=== PATIENT | male | born 1960 | race American Indian/Alaskan Native ===

== ENCOUNTER 2020-07-28 23:28 | Inpatient (IN) | payer OTHER ==
[2020-07-28] MEDS ORDERED: SODIUM CHLORIDE 0.9% 1000 ML 1,000 ML IV ONE (23:43)
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
[2020-07-29 00:50] LABS: Basophils % (Auto) 0.3 % (0.0-1.8); Eosinophils % (Auto) 0.1 % (0.0-4.3); Hematocrit 50.3 % (35.5-45.6); Hemoglobin 16.2 gm/dl (11.8-15.2); Lymphocytes # (Auto) 2.6 K/mm3 (1.2-5.4); Mean Corpuscular HGB Conc 32 % (32-34); Mean Corpuscular Volume 92 fl (84-94); Monocytes # (Auto) 0.9 K/mm3 (0.0-0.8); Monocytes % (Auto) 7.2 % (0.0-7.3); Platelet Count 170 K/mm3 (140-440); Red Blood Count 5.49 M/mm3 (3.65-5.03); Red Cell Distribution Width 15.1 % (13.2-15.2)
[2020-07-29 00:55] LABS: Alanine Aminotransferase 12 units/L (7-56); Albumin 4.5 g/dL (3.9-5); BUN/Creatinine Ratio 22; Blood Urea Nitrogen 22 mg/dL (9-20); Hemolysis Index 7
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
--- NOTE | 2020-07-29 01:38 | XRay Report ---
CHEST 1 VIEW 07/29/2020 12:30 AM INDICATION / CLINICAL INFORMATION: Altered mental status. COMPARISON: None available. FINDINGS: SUPPORT DEVICES: None. HEART / MEDIASTINUM: No significant abnormality. LUNGS / PLEURA: No significant pulmonary or pleural abnormality. No pneumothorax. ADDITIONAL FINDINGS: No significant additional findings. IMPRESSION: 1. No acute findings. Signer Name: Nghia Burroughs MD Signed: 07/29/2020 1:33 AM Workstation Name: [id number]
[2020-07-29 04:23] LABS: Bilirubin,Urine NEG (Negative); Blood,Urine SM (Negative); Color,Urine Yellow (Yellow); Mucus,Urine 3+ /HPF; Urobilinogen,Urine < 2.0 mg/dL (<2.0)
[2020-07-29 04:26] LABS: Amphetamine Screen,Urine PRESUMPTIVE NEGATIVE; Benzodiazepines Screen,Urine PRESUMPTIVE POSITIVE; Cannabinoid Screen,Urine PRESUMPTIVE POSITIVE; Cocaine Screen,Urine PRESUMPTIVE NEGATIVE; Methadone Screen,Urine PRESUMPTIVE NEGATIVE; Opiate Screen,Urine PRESUMPTIVE NEGATIVE
--- NOTE | 2020-07-29 10:12 | Consultation ---
History of Present Illness - Reason for Consult Consult date: 07/29/20 Reason for consult: MHE Requesting physician: MP SANTOS - History of Present Psychiatric Illness Per ED Provider: This is a 59-year-old male presents to the emergency department via EMS from home with the complaint of combativeness, agitation, and altered mental status. EMS says that "per the patient's girlfriend, the patient does not have any history of any mental illness or psychiatric conditions. Apparently the patient has been altered over the past 2 days. This evening the patient became agitated and aggressive and was seen by EMS ripping his clothes off and yelling at them. The patient was given 5 mg of Haldol, 5 mg of Versed, and 50 mg of Benadryl. He arrives to the emergency department medicated and sedated and therefore is currently a poor historian. He does not appear to have been in this emergency department previously. PSYCH HPI Patient is a 59 year old Male with prior psychiatric history of Bipolar many years ago and resolved and has past medicla history of HTN and DM who presents to hospital with altered mental status. Patient is only oriented to , appears to very altered, when asked where he is, patient says his name, says he is from "[facility]" and laughs intermitently. says patient symptoms and behavior is sudden, not prior incidence and patient does smoke marijuanna. PAST PSYCHIATRIC HISTORY Diagnoses: Bipolar Suicide attempts or Self-harm behavior: none reported Prior psychiatric hospitalizations: n/a Substance Abuse history: Marijuana Previous psychiatric medications tried: none reported Outpatient treatment: none reported PAST MEDICAL HISTORY: HTN and DM Family Psychiatric History: None reported or documented SOCIAL HISTORY Marital Status: Living Arrangements: with Employment Status: retired Access to guns/weapons: none Education: History of Abuse: none reported Legal History: none REVIEW OF SYSTEMS ROS cannot be reliably obtained from the patient due to his confusion MENTAL STATUS EXAMINATION General Appearance and Behavior: Age appropriate, good hygiene, wearing appropriate clothes, uncooperative polite with questioning. Cooperation: Withdrawn Psychomotor Behavior: Psychomotor agitation Mood: Affect and affective range: Flat Thought Process: Tangential, loose associattion Thought Content: Paranoid and confused Speech: Normal volume, Regular rate and rhythm, Intellectual Functioning: Poor Suicidal Ideation: N/A Homicidal Ideation: N/A Impulse Control: Unimpaired Insight and Judgment: Impaired Memory: memory impaired Attention:Distractible, Orientation: Alert, but disoriented and confused DX: ALTERED MENTAL STATUS Treatment Plan Patient symptoms are sudden, prior history of bipolar in early years and resolved. Presents as altered rather than manic. Recommend Neurology clearance prior to futher psychiatric recommendation at this time. MEDICATIONS: Risks, benefits and alternatives of medications discussed with the patient, questions answered and consent obtained from patient. PSYCHOTHERAPY: Supportive psychotherapy provided MEDICAL: Per primary team DELIRIUM PRECAUTIONS: Please re-orient patient frequently, keep lights on during the day, and minimize benzodiazepines and opiates as these medications could worsen patient's confusion. COMPENSATION EXPERT: DISPOSITION: Do Not Recommend acute inpatient psychiatric hospitalization at this time until nenurology clearance.. Case discussed with Dr. Olivier who agrees with current disposition LEGAL STATUS: FOLLOW-UP: Will follow Thank you for the consult. Please contact with any questions and/or concerns. Medications and Allergies Allergies Allergy/AdvReac Type Severity Reaction Status Date / Time No Known Allergies Allergy Verified 07/29/20 09:32 Mental Status Exam - Vital signs Last Vital Signs Temp 97.1 F L 07/28/20 23:42 Pulse 91 H 07/29/20 08:00 Resp 17 07/29/20 08:00 BP 140/77 07/29/20 09:01 Pulse Ox 97 07/29/20 00:00 Results Result Diagrams: 07/28/20 23:59 07/28/20 23:59 Abnormal lab results 07/28/20 07/28/20 07/28/20 Range/Units 23:59 23:59 23:59 WBC 13.2 H (4.5-11.0) K/mm3 RBC 5.49 H (3.65-5.03) M/mm3 Hgb 16.2 H (11.8-15.2) gm/dl Hct 50.3 H (35.5-45.6) % [place] # (Auto) 0.9 H (0.0-0.8) K/mm3 Seg Neutrophils % 72.4 H (40.0-70.0) % Seg Neutrophils # 9.6 H (1.8-7.7) K/mm3 Carbon Dioxide 18 L (22-30) mmol/L BUN 22 H (9-20) mg/dL Glucose 151 H (75-100) mg/dL Total Creatine Kinase (55-170) units/L Salicylates < 0.3 L (2.8-20.0) mg/dL Acetaminophen (10.0-30.0) ug/mL 07/28/20 07/28/20 Range/Units 23:59 23:59 WBC (4.5-11.0) K/mm3 RBC (3.65-5.03) M/mm3 Hgb (11.8-15.2) gm/dl Hct (35.5-45.6) % [place] # (Auto) (0.0-0.8) K/mm3 Seg Neutrophils % (40.0-70.0) % Seg Neutrophils # (1.8-7.7) K/mm3 Carbon Dioxide (22-30) mmol/L BUN (9-20) mg/dL Glucose (75-100) mg/dL Total Creatine Kinase 276 H (55-170) units/L Salicylates (2.8-20.0) mg/dL Acetaminophen 5.0 L (10.0-30.0) ug/mL All other labs normal.
--- NOTE | 2020-07-29 21:34 | Consultation ---
History of Present Illness - Reason for Consult Consult date: 07/29/20 - History of Present Illness [facility] Consult Note # Demographics Consult Type: General Neurology Patient Location: Emergency Room First Name: rsosy Last Name: safia Date of : 1960 Age: 59 Gender: Male Time of Initial Page ( Time): 07/29/2020, 21:23 Time of Return Call ( Time): 07/29/2020, 21:23 # HPI History: 59yo man who presents with confusion for the last 2 days. He has had c ombativeness and was agitated. # Scores Time of exam and NIHSS ( Time): 07/29/2020, 21:27 Level of Consciousness 1a: [0] = Alert; keenly responsive LOC Questions 1b: [1] = Answers one correctly LOC Commands 1c: [1] = Performs one correctly Best Gaze 2: [0] = Normal Visual 3: [0] = No visual loss Facial Palsy 4: [0] = Normal symmetrical movements Motor Arm Left 5a: [0] = No drift Motor Arm Right 5b: [1] = Drift Motor Leg Left 6a: [0] = No drift Motor Leg Right 6b: [2] = Some effort against gravity Limb Ataxia 7: [0] = Absent Sensory 8: [0] = Normal Best Language 9: [2] = Severe aphasia Dysarthria 10: [1] = [id number] dysarthria Extinction and Inattention 11: [0] = No abnormality NIHSS Total: 8 # PMH-FH-SH Past Medical History: bipolar Social History: THC # Assessment Impression: Altered Mental Status, possible stroke # Plan Thrombolytic/Intervention: NOT IV Thrombolytic or IA Intervention Thrombolytic Exclusion (< 3 hour window): time of onset unclear Intraarterial Exclusion: other (see below), symptoms greater than 2 days Labs: Ammonia, B12, liver function tests, TSH, urine drug screen, ua Imaging: (urgency: routine admission): MRI Brain without contrast Other: would not pursue stroke work-up if MRI is negative, I have discussed my recommendations with the referring provider Medications and Allergies Allergies Allergy/AdvReac Type Severity Reaction Status Date / Time No Known Allergies Allergy Verified 07/29/20 09:32 Exam - Constitutional Vitals: Temp Pulse Resp BP Pulse Ox 97.1 F L 87 17 167/71 99 07/28/20 23:42 07/29/20 12:00 07/29/20 08:00 07/29/20 12:00 07/29/20 12:00 Results - Labs CBC & Chem 7: 07/28/20 23:59 07/28/20 23:59 Labs: Abnormal lab results 07/28/20 07/28/20 07/28/20 Range/Units 23:59 23:59 23:59 WBC 13.2 H (4.5-11.0) K/mm3 RBC 5.49 H (3.65-5.03) M/mm3 Hgb 16.2 H (11.8-15.2) gm/dl Hct 50.3 H (35.5-45.6) % Lynn # (Auto) 0.9 H (0.0-0.8) K/mm3 Seg Neutrophils % 72.4 H (40.0-70.0) % Seg Neutrophils # 9.6 H (1.8-7.7) K/mm3 Carbon Dioxide 18 L (22-30) mmol/L BUN 22 H (9-20) mg/dL Glucose 151 H (75-100) mg/dL Total Creatine Kinase (55-170) units/L Salicylates < 0.3 L (2.8-20.0) mg/dL Acetaminophen (10.0-30.0) ug/mL 07/28/20 07/28/20 Range/Units 23:59 23:59 WBC (4.5-11.0) K/mm3 RBC (3.65-5.03) M/mm3 Hgb (11.8-15.2) gm/dl Hct (35.5-45.6) % Lynn # (Auto) (0.0-0.8) K/mm3 Seg Neutrophils % (40.0-70.0) % Seg Neutrophils # (1.8-7.7) K/mm3 Carbon Dioxide (22-30) mmol/L BUN (9-20) mg/dL Glucose (75-100) mg/dL Total Creatine Kinase 276 H (55-170) units/L Salicylates (2.8-20.0) mg/dL Acetaminophen 5.0 L (10.0-30.0) ug/mL
--- NOTE | 2020-07-29 23:39 | History and Physical Report ---
History of Present Illness Date of examination: 07/29/20 Date of admission: 07/29/20 22:08 Chief complaint: Altered mental status History of present illness: 59 year old Male with prior psychiatric history of Bipolar many years ago and resolved and has past medicla history of HTN and DM who presents to hospital with altered mental status. Patient is only oriented to , appears to very altered, when asked where he is, patient says his name, says he is from "[place]" and laughs intermitently. says patient symptoms and behavior is sudden, not prior incidence and patient does smoke marijuanna. Past History Past Medical History: diabetes, hypertension Medications and Allergies Allergies Allergy/AdvReac Type Severity Reaction Status Date / Time No Known Allergies Allergy Verified 07/29/20 09:32 Active Meds: Active Medications Aspirin (Aspirin 325 Mg Tab) 325 mg PO QDAY SHILPA Atorvastatin Calcium (Atorvastatin 40 Mg Tab) 40 mg PO QHS SHILPA Heparin Sodium (Porcine) (Heparin 5,000 Unit/1 Ml Vial) 5,000 unit SUB-Q Q8HR S CH Hydralazine HCl (Hydralazine 20 Mg/1 Ml Inj) 10 mg IV ONCE ONE Stop: 07/29/20 23:31 Labetalol HCl (Labetalol 20 Mg/4 Ml Inj) 10 mg IV Q5MIN PRN PRN Reason: to maintain SBP < 180 Pantoprazole Sodium (Pantoprazole 40 Mg Tab) 40 mg PO QDAC SHILPA Sodium Chloride (Sodium Chloride 0.9% 10 Ml Flush Syringe) 10 ml INJ PRN PRN PRN Reason: LINE FLUSH Review of Systems Neurological: change in mentation Exam - Constitutional Vitals: Temp Pulse Resp BP Pulse Ox 97.1 F L 87 17 167/71 99 07/28/20 23:42 07/29/20 12:00 07/29/20 08:00 07/29/20 12:00 07/29/20 12:00 General appearance: Present: no acute distress, well-nourished - EENT Eyes: Present: PERRL ENT: hearing intact, clear oral mucosa - Neck Neck: Present: supple, normal ROM - Respiratory Respiratory effort: normal Respiratory: bilateral: CTA - Cardiovascular Heart Sounds: Present: S1 & S2. Absent: rub, click - Extremities Extremities: pulses symmetrical, No edema Peripheral Pulses: within normal limits - Abdominal General gastrointestinal: Present: soft, non-tender, non-distended, normal bowel sounds Male genitourinary: Present: normal - Integumentary Integumentary: Present: clear, warm, dry - Musculoskeletal Musculoskeletal: gait normal, strength equal bilaterally - Psychiatric Psychiatric: appropriate mood/affect, intact judgment & insight - Neurologic Neurologic: CNII-XII intact, moves all extremities HEART Score - HEART Score Troponin: Troponin T < 0.010 ng/mL (0.00-0.029) 07/28/20 23:59 Results - Labs CBC & Chem 7: 07/28/20 23:59 07/28/20 23:59 Labs: Laboratory Last Values WBC 13.2 K/mm3 (4.5-11.0) H 07/28/20 23:59 RBC 5.49 M/mm3 (3.65-5.03) H 07/28/20 23:59 Hgb 16.2 gm/dl (11.8-15.2) H 07/28/20 23:59 Hct 50.3 % (35.5-45.6) H 07/28/20 23:59 MCV 92 fl (84-94) 07/28/20 23:59 MCH 30 pg (28-32) 07/28/20 23:59 MCHC 32 % (32-34) 07/28/20 23:59 RDW 15.1 % (13.2-15.2) 07/28/20 23:59 Plt Count 170 K/mm3 (140-440) 07/28/20 23:59 Lymph % (Auto) 20.0 % (13.4-35.0) 07/28/20 23:59 [place] % (Auto) 7.2 % (0.0-7.3) 07/28/20 23:59 Eos % (Auto) 0.1 % (0.0-4.3) 07/28/20 23:59 Baso % (Auto) 0.3 % (0.0-1.8) 07/28/20 23:59 Lymph # (Auto) 2.6 K/mm3 (1.2-5.4) 07/28/20 23:59 [place] # (Auto) 0.9 K/mm3 (0.0-0.8) H 07/28/20 23:59 Eos # (Auto) 0.0 K/mm3 (0.0-0.4) 07/28/20 23:59 Baso # (Auto) 0.0 K/mm3 (0.0-0.1) 07/28/20 23:59 Seg Neutrophils % 72.4 % (40.0-70.0) H 07/28/20 23:59 Seg Neutrophils # 9.6 K/mm3 (1.8-7.7) H 07/28/20 23:59 Sodium 140 mmol/L (137-145) 07/28/20 23:59 Potassium 4.1 mmol/L (3.6-5.0) 07/28/20 23:59 Chloride 103.5 mmol/L (98-107) 07/28/20 23:59 Carbon Dioxide 18 mmol/L (22-30) L 07/28/20 23:59 Anion Gap 23 mmol/L 07/28/20 23:59 BUN 22 mg/dL (9-20) H 07/28/20 23:59 Creatinine 1.0 mg/dL (0.8-1.3) 07/28/20 23:59 Estimated GFR > 60 ml/min 07/28/20 23:59 BUN/Creatinine Ratio 22 % 07/28/20 23:59 Glucose 151 mg/dL (75-100) H 07/28/20 23:59 Calcium 10.0 mg/dL (8.4-10.2) 07/28/20 23:59 Total Bilirubin 0.80 mg/dL (0.1-1.2) 07/28/20 23:59 AST 15 units/L (5-40) 07/28/20 23:59 ALT 12 units/L (7-56) 07/28/20 23:59 Alkaline Phosphatase 75 units/L (35-129) 07/28/20 23:59 Ammonia 53.0 umol/L (25-60) 07/28/20 23:59 Total Creatine Kinase 276 units/L (55-170) H 07/28/20 23:59 Troponin T < 0.010 ng/mL (0.00-0.029) 07/28/20 23:59 Total Protein 8.1 g/dL (6.3-8.2) 07/28/20 23:59 Albumin 4.5 g/dL (3.9-5) 07/28/20 23:59 Albumin/Globulin Ratio 1.3 % 07/28/20 23:59 TSH 1.110 mlU/mL (0.270-4.200) 07/28/20 23:59 Urine Color Yellow (Yellow) 07/29/20 02:56 Urine Turbidity Slightly-cloudy (Clear) 07/29/20 02:56 Urine pH 5.0 (5.0-7.0) 07/29/20 02:56 Ur Specific [place] 1.026 (1.003-1.030) 07/29/20 02:56 Urine Protein 100 mg/dl mg/dL (Negative) 07/29/20 02:56 Urine Glucose (UA) 50 mg/dL (Negative) 07/29/20 02:56 Urine Ketones 20 mg/dL (Negative) 07/29/20 02:56 Urine Blood Sm (Negative) 07/29/20 02:56 Urine Nitrite Neg (Negative) 07/29/20 02:56 Urine Bilirubin Neg (Negative) 07/29/20 02:56 Urine Urobilinogen < 2.0 mg/dL (<2.0) 07/29/20 02:56 Ur Leukocyte Esterase Neg (Negative) 07/29/20 02:56 Urine WBC (Auto) 1.0 /HPF (0.0-6.0) 07/29/20 02:56 Urine RBC (Auto) 2.0 /HPF (0.0-6.0) 07/29/20 02:56 U Epithel Cells (Auto) 1.0 /HPF (0-13.0) 07/29/20 02:56 Urine Mucus 3+ /HPF 07/29/20 02:56 Salicylates < 0.3 mg/dL (2.8-20.0) L 07/28/20 23:59 Urine Opiates Screen Presumptive negative 07/29/20 02:56 Urine Methadone Screen Presumptive negative 07/29/20 02:56 Acetaminophen 5.0 ug/mL (10.0-30.0) L 07/28/20 23:59 Ur Barbiturates Screen Presumptive negative 07/29/20 02:56 Ur Phencyclidine Scrn Presumptive negative 07/29/20 02:56 Ur Amphetamines Screen Presumptive negative 07/29/20 02:56 U Benzodiazepines Scrn Presumptive positive 07/29/20 02:56 Urine Cocaine Screen Presumptive negative 07/29/20 02:56 U Marijuana (THC) Screen Presumptive positive 07/29/20 02:56 Drugs of Abuse Note Disclamer 07/29/20 02:56 Plasma/Serum Alcohol < 0.01 % (0-0.07) 07/28/20 23:59 Coronavirus (PCR) Negative (Negative) 07/29/20 08:24 - Imaging and Cardiology CT Scan - head: image reviewed Assessment and Plan VTE prophylaxis?: Chemical Plan of care discussed with patient/family: Yes - Patient Problems (1) Acute metabolic encephalopathy Current Visit: Yes Status: Acute Plan to address problem: Admit the patient to the medical telemetry. Patient is seen and evaluated by telemetry neurology. We will put the patient on aspirin 325 mg p.o. daily Lipitor 40 mg p.o. daily. We will do the MRI of the brain and MRA of the brain and neck with and without contrast. Echocardiogram. If needed will consult neurology on-call. (2) Diabetes 1.5, managed as type 2 Current Visit: Yes Status: Acute Plan to address problem: We will put the patient insulin sliding scale. We also consult diabetic educ ation (3) DVT prophylaxis Current Visit: Yes Status: Acute Plan to address problem: Heparin 5000 units subcu every 8 hours for DVT prophylaxis and Protonix 40 mg p.o. daily for GI prophylaxis. Patient is a full code (4) History of bipolar disorder Current Visit: Yes Status: Acute Plan to address problem: Patient is followed by psychiatry will put the medication as per psych. (5) Hypertension Current Visit: Yes Status: Acute Plan to address problem: Hydralazine 10 mg IV every every 6 hours as needed. We monitor the blood pressure closely.
[2020-07-29] MEDS ORDERED: DEXTROSE 50% IN WATER (25GM) 50 ML SYRINGE IV PRN (23:41)
[2020-07-30] MEDS ORDERED: hydrALAZINE 20 MG/1 ML INJ IV ONE (00:30)
[2020-07-30 04:43] LABS: Alanine Aminotransferase 15 units/L (7-56); Albumin 4.4 g/dL (3.9-5)
[2020-07-30 04:44] LABS: Bilirubin,Direct < 0.2 mg/dL (0-0.2)
[2020-07-30 04:56] LABS: Chol/HDL Ratio 3.93 %; HDL Cholesterol 30 mg/dL (40-59); LDL Cholesterol,Direct 67 mg/dL (50-130)
[2020-07-30] MEDS ORDERED: HEPARIN 5,000 UNIT/1 ML VIAL SUB-Q SCH (06:00)
[2020-07-30] MEDS ORDERED: PANTOPRAZOLE 40 MG TAB PO SCH (07:30)
[2020-07-30] MEDS: HEPARIN 5,000 UNIT/1 ML VIAL SUB-Q SCH ×3 (11:16→22:53)
[2020-07-30] MEDS: INSULIN LISPRO 100 UNIT/ML SUB-Q SCH ×4 (11:17→22:53)
[2020-07-30] MEDS: ASPIRIN 325 MG TAB PO SCH (11:17)
[2020-07-30] MEDS: PANTOPRAZOLE 40 MG TAB PO SCH (11:17)
--- NOTE | 2020-07-30 11:32 | Progress Note ---
Subjective - Reason for Consult Consult date: 07/30/20 Reason for consult: MHE Requesting physician: LUCILA GIL - Chief Complaint Chief complaint: Progress Patient seen in room awake but non communicative, making non audible sounds when asked questions, laughs and looks away. MENTAL STATUS EXAMINATION General Appearance and Behavior: Age appropriate, good hygiene, wearing appropriate clothes, uncooperative polite with questioning. Cooperation: Withdrawn Psychomotor Behavior: Psychomotor agitation Mood: Affect and affective range: Flat Thought Process: loose associattion Thought Content:confused Speech: Normal volume, Regular rate and rhythm, Intellectual Functioning: Poor Suicidal Ideation: N/A Homicidal Ideation: N/A Impulse Control: Unimpaired Insight and Judgment: Impaired Memory: memory impaired Attention:Distractible, Orientation: Alert, but disoriented and confused DX: ALTERED MENTAL STATUS Treatment Plan Patient awaiting neurology clearance MEDICATIONS: Risks, benefits and alternatives of medications discussed with the patient, questions answered and consent obtained from patient. PSYCHOTHERAPY: Supportive psychotherapy provided MEDICAL: Per primary team DELIRIUM PRECAUTIONS: Please re-orient patient frequently, keep lights on during the day, and minimize benzodiazepines and opiates as these medications could worsen patient's confusion. FAMILY PRESERVATION OFFICER: DISPOSITION: Do Not Recommend acute inpatient psychiatric hospitalization at this time until nenurology clearance.. Case discussed with Dr. Olivier who agrees with current disposition LEGAL STATUS: FOLLOW-UP: Will follow Thank you for the consult. Please contact with any questions and/or concerns. Mental Status Exam - Vital signs Last Vital Signs Temp 97.9 F 07/30/20 10:27 Pulse 61 07/30/20 10:26 Resp 18 07/30/20 10:27 BP 166/89 07/30/20 10:26 Pulse Ox 100 07/30/20 10:26
--- NOTE | 2020-07-30 12:16 | Discharge Summary ---
Providers - Providers Date of Admission: 07/29/20 22:08 Date of discharge: 07/30/20 Attending physician: HARLEY VALE 07/29/20 20:26 Consult to Physician [CONS] Routine Comment: Consulting Provider: YAEL QUIROGA Physician Instructions: Reason For Exam: mental health placement 07/29/20 23:31 Occupational Therapy Evaluate and Treat [CONS] Routine Comment: Reason For Exam: Neuro deficits Physical Therapy Evaluation and Treat [CONS] Routine Comment: Reason For Exam: Neuro deficits 07/29/20 23:41 Consult to Dietitian/Nutrition [CONS] Routine Physician Instructions: Reason For Exam: Reason for Consult: Diet education 07/30/20 10:01 Consult to Physician [CONS] Routine Comment: Consulting Provider: ALEXANDRA LEE Physician Instructions: Reason For Exam: Altered mental status Primary care physician: [employer] WORK[employer] Hospitalization Condition: Fair Disposition: DC/[place]-70 ANOTHER TYPE [facility] Final Discharge Diagnosis (Prints w/discharge instructions): Acute metabolic/toxic encephalopathy, Diabetes type 2, History of bipolar disorder, Hypertension uncontrolled, Substance abuse. Time spent for discharge: 34 minutes Core Measure Documentation - Palliative Care Palliative Care/ Comfort Measures: Not Applicable - Core Measures Any of the following diagnoses?: none Exam - Constitutional Vitals: Temp Pulse Resp BP Pulse Ox 97.9 F 61 18 166/89 100 07/30/20 10:27 07/30/20 10:26 07/30/20 10:27 07/30/20 10:26 07/30/20 10:26 Plan Activity: fall precautions Weight Bearing Status: Non-Weight Bearing Follow up with: PRIMARY CAREMD [Primary Care Provider] - 3-5 Days
[2020-07-30] MEDS: hydrALAZINE 20 MG/1 ML INJ IV PRN ×2 (14:10→23:01)
--- NOTE | 2020-07-30 16:06 | Vascular Lab Report ---
DUPLEX DOPPLER ULTRASOUND CAROTID, BILATERAL INDICATION / CLINICAL INFORMATION: stroke. Carotid artery atherosclerotic disease. COMPARISON: None available. FINDINGS: RIGHT CAROTID: Mild intimal thickening seen in right CCA. Mild atherosclerosis seen in right bulb ext ending into proximal ICA. - PLAQUE ESTIMATE (%): < 50% - CCA velocity: 105 cm/sec. - ICA peak systolic velocity: 91 cm/sec. - ICA/CCA PSV Ratio: 0.9 Right Vertebral Artery: Antegrade flow. LEFT CAROTID: Mild intimal thickening is seen in the proximal and mid left CCA. Moderate atherosclero sis is seen in the distal CCA and bulb. - PLAQUE ESTIMATE (%): Near-complete occlusion of the left ICA. - CCA velocity: 58 cm/sec. - ICA peak systolic velocity: 7 cm/sec. - ICA/CCA PSV Ratio: 0.1 Left Vertebral Artery: Antegrade flow. IMPRESSION: 1. Right Internal Carotid Artery: Less than 50% diameter stenosis. 2. Left Internal Carotid Artery: Near-complete occlusion of the left ICA secondary to atherosclerotic disease. 3. Moderate to severe atherosclerosis seen bilateral, as above. Findings were communicated to the nurse by the technologist at 11:22 AM. Velocity criteria are extrapolated from diameter data as defined by the Society of Radiologists in Ul trasound Consensus Conference, Radiology 2003; 229;340-346. NO STENOSIS (NORMAL) - Plaque = none; ICA PSV < 125 cm/sec; ICA/CCA PSV Ratio < 2.0 <50% STENOSIS - Plaque < 50%; ICA PSV < 125 cm/sec; ICA/CCA PSV Ratio < 2.0 50-69% STENOSIS - Plaque > 50%; ICA PSV = 125-230 cm/sec; ICA/CCA PSV Ratio = 2.0-4.0 >70% BUT <100% STENOSIS - Plaque > 50%; ICA PSV > 230 cm/sec; ICA/CCA PSV Ratio > 4.0 NEAR OCCLUSION - Plaque = visible lumen; ICA PSV = high/low/none; ICA/CCA PSV Ratio = variable TOTAL OCCLUSION - Plaque = no lumen; ICA PSV = none; ICA/CCA PSV Ratio = N/A Scribed by: Katherine Corcoran RDMS, RVT Scribed: 07/30/2020 11:27 AM Signer Name: Emeka Merchant MD Signed: 07/30/2020 4:02 PM Workstation Name: [id number]
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
[2020-07-31] MEDS: HEPARIN 5,000 UNIT/1 ML VIAL SUB-Q SCH ×3 (05:59→22:18)
[2020-07-31 08:48] LABS: Basophils % (Auto) 0.3 % (0.0-1.8); Hematocrit 42.6 % (35.5-45.6); Hemoglobin 14.4 gm/dl (11.8-15.2); Lymphocytes # (Auto) 2.6 K/mm3 (1.2-5.4); Lymphocytes % (Auto) 21.1 % (13.4-35.0); Mean Corpuscular HGB Conc 34 % (32-34); Mean Corpuscular Volume 90 fl (84-94); Monocytes # (Auto) 1.1 K/mm3 (0.0-0.8); Monocytes % (Auto) 9.2 % (0.0-7.3); Platelet Count 146 K/mm3 (140-440); Red Blood Count 4.76 M/mm3 (3.65-5.03); Red Cell Distribution Width 14.6 % (13.2-15.2)
[2020-07-31 09:13] LABS: Blood Urea Nitrogen 20 mg/dL (9-20); Calcium 10.2 mg/dL (8.4-10.2); Hemolysis Index 40
--- NOTE | 2020-07-31 09:28 | Cat Scan Report ---
CT BRAIN: 07/31/2020 INDICATION / CLINICAL INFORMATION: cva. COMPARISON: 07/29/2020 FINDINGS: BRAIN/INTRACRANIAL STRUCTURES: Unenhanced CT images of the brain demonstrate evidence of evolving ext ensive ischemic changes. There is been interval development of hypoattenuation in the left subcortica l white matter, in the region of the internal capsule and centrum semiovale. There may be some additi onal subtle cortical hypoattenuation in portions of the left MCA distribution. There is no evidence of hemorrhage. There are no abnormal extra-axial fluid collections. EXTRACRANIAL STRUCTURES: Unremarkable. IMPRESSION: Evolving left sided subcortical and cortical ischemic changes. No evidence of hemorrhage. All CT scans at this location are performed using dose reduction to ALARA by means of automated expos ure control. Signer Name: Gurwinder Hilton MD Signed: 07/31/2020 9:23 AM Workstation Name: [id number]
--- NOTE | 2020-07-31 09:31 | Cat Scan Report ---
CTA NECK WITH CONTRAST HISTORY: Stroke COMPARISON: None. TECHNIQUE: Routine CTA of the neck was performed. 3-D/MIP reformats were postprocessed. Percentage s tenosis is determined by direct quantitative measurements of diseased internal carotid artery diamete r compared with normal distal internal carotid artery reference segments or by criteria similar to NA SCET where applicable.All CT scans at this location are performed using CT dose reduction for ALARA b y means of automated exposure control CONTRAST: 100 ml of Omnipaque 350 FINDINGS: Aortic arch: No significant abnormality. Streaky artifacts along the right innominate artery Cervical vertebral arteries: No significant abnormality. Left vertebral artery is originating from th e aorta Common carotid arteries: No significant abnormality. Carotid bifurcations: Distal right common carotid artery patulous; nonstenotic atherosclerotic plaque with focal calcificat ion along the anterior wall of right internal carotid artery Left internal carotid artery is occluded at the origin; no string sign Cervical internal carotid arteries: Cervical segment of right internal carotid artery is normal; left internal carotid artery occluded Additional findings: None. IMPRESSION: Patulous distal right common carotid artery; nonstenotic atheromatous plaque with focal areas of calc ification in the proximal right internal carotid artery Left internal carotid artery is occluded Signer Name: Kameron Oswald MD Signed: 07/31/2020 9:26 AM Workstation Name: [id number]
--- NOTE | 2020-07-31 09:40 | Cat Scan Report ---
CTA HEAD WITH CONTRAST HISTORY: Stroke COMPARISON: None. TECHNIQUE: Routine non-contrast CT Head, CTA of the head and post-contrast CT Head are performed. 3-D /MIP reformats postprocessed. All CT scans at this location are performed using CT dose reduction for ALARA by means of automated exposure control CONTRAST: 100 ml of Omnipaque 350 FINDINGS: CTA Head: Intracranial vertebral arteries: No significant abnormality. Basilar artery: No significant abnormality. Posterior cerebral arteries: No significant abnormality. Intracranial internal carotid arteries: In the right internal carotid artery, approximately 60% steno ses in the cavernous segment; communicating segment in the right internal carotid artery terminus nor mal Collateral circulation to the left internal carotid artery at the skull base; collateral circulation also through left ophthalmic artery; difficult to evaluate the left internal carotid artery because of decreased flow; lumen of the cavernous segment of left internal carotid artery appears narrowed; c ommunicating segment of the left internal carotid artery and terminus normal Anterior cerebral arteries: Right A1 segment is hypoplastic; left the A1 segment supplies both perica llosal arteries; minimal atherosclerotic changes in the left A1 segment Middle cerebral arteries: Both M1 segments are normal Dural venous sinuses:Not optimally opacified. No significant abnormality. Additional findings: None. IMPRESSION: Approximately 60% stenoses in the cavernous segment of right internal carotid artery; left internal c arotid artery is opacified at the skull base from collateral circulation; lumen of the cavernous segm ent of left internal carotid artery appears narrower Right A1 segment is hypoplastic; left A1 segment supplies both anterior cerebral arteries; minimal a theromatous changes in the left A1 segment Signer Name: Kameron Oswald MD Signed: 07/31/2020 9:36 AM Workstation Name: [id number]
[2020-07-31 09:44] LABS: BUN/Creatinine Ratio 29
[2020-07-31] MEDS: INSULIN LISPRO 100 UNIT/ML SUB-Q SCH ×3 (09:57→19:39)
[2020-07-31] MEDS: ASPIRIN 325 MG TAB PO SCH (10:05)
[2020-07-31] MEDS: PANTOPRAZOLE 40 MG TAB PO SCH (10:06)
[2020-07-31] MEDS: hydrALAZINE 20 MG/1 ML INJ IV PRN ×2 (10:06→14:50)
--- NOTE | 2020-07-31 10:40 | Consultation ---
History of Present Illness Consult date: 07/31/20 Reason for Consult: AMS Chief complaint: AMS History of present illness: 59 yo male with hth, dm, noted with encephalopathy with right-sided weakness. Patient is not able to communicate at present. Per RN, no communication with her either. Past History Past Medical History: diabetes, hypertension Medications and Allergies Allergies Allergy/AdvReac Type Severity Reaction Status Date / Time No Known Allergies Allergy Verified 07/29/20 09:32 Home Medications Medication Instructions Recorded Confirmed Last Taken Type metFORMIN [Glucophage] 500 mg PO BID 07/30/20 07/30/20 Unknown History Active Meds: Active Medications Aspirin (Aspirin 325 Mg Tab) 325 mg PO QDAY [facility] Last Admin: 07/31/20 10:05 Dose: 325 mg Documented by: Atorvastatin Calcium (Atorvastatin 40 Mg Tab) 40 mg PO QHS [facility] Last Admin: 07/30/20 22:54 Dose: 40 mg Documented by: Dextrose (Dextrose 50% In Water (25gm) 50 Ml Syringe) 0 ml IV Q30MIN PRN; Protocol PRN Reason: Hypoglycemia Heparin Sodium (Porcine) (Heparin 5,000 Unit/1 Ml Vial) 5,000 unit SUB-Q Q8HR [facility] Last Admin: 07/31/20 05:59 Dose: 5,000 unit Documented by: Hydralazine HCl (Hydralazine 20 Mg/1 Ml Inj) 10 mg IV Q4H PRN PRN Reason: Blood Pressure Last Admin: 07/31/20 10:06 Dose: 10 mg Documented by: Insulin Human Lispro (Insulin Lispro 100 Unit/Ml) 0 unit SUB-Q ACHS [facility]; Protocol Last Admin: 07/31/20 09:57 Dose: Not Given Documented by: Labetalol HCl (Labetalol 20 Mg/4 Ml Inj) 10 mg IV Q5MIN PRN PRN Reason: to maintain SBP < 180 Pantoprazole Sodium (Pantoprazole 40 Mg Tab) 40 mg PO QDAC [facility] Last Admin: 07/31/20 10:06 Dose: 40 mg Documented by: Sodium Chloride (Sodium Chloride 0.9% 10 Ml Flush Syringe) 10 ml IV PRN PRN PRN Reason: LINE FLUSH Last Admin: 07/31/20 10:08 Dose: 10 ml Documented by: Review of Systems ROS unobtainable: due to mental status Physical Examination - Vital Signs Vital Signs: Vital Signs Pulse Resp 110 H 28 H 07/28/20 23:34 07/28/20 23:34 - Physical Exam Narrative exam: Gen: nad, well-nourished; Head: normocephalic; Eyes: no gaze deviation; no ptosis; ENT: no vocalization; CVS: warm and well-perfused; Pulm: no respiratory distress; GI: appears non-distended; Ext: no cyanosis at distal extremities; Skin: no acute rash at distal extremities; Heme: no pathologic bruising or ecchymosis at distal extremities; Neuro: alert, mute, severe aphasia, CN 2 - PERRL, visual [place] - blinks to stimuli on left>right, CN 3, 4, 6 - no gaze deviation, CN 5 / CN 7 - opens closes eye spontaneously, CN 8 - hearing grossly intact, CN 9, 10 - no swallow noted, CN 11 / 12 - pt is not cooperative secondary to aphasia; Motor - at least 4/5 at leftl exts with drift to bed at left arm/leg (secondary to aphasia); 0/5 at right arm, 1/5 at right leg; Sensory -moves all exts to tactile stimuli, Cerebellar - fnf /hts, pt cannot cooperate secondary to aphasia, Gait - deferred secondary to fall risk; NIHSS (1a.) Level of Consciousness:0 (1b.) LOC Questions:2 (1c.) LOC Commands:2 (2.) Best Gaze:0 (3.) Visual:1 (4.) Facial Palsy:1 (5a.) Motor Arm, Left: 2 (5b.) Motor Arm, Right: 4 (6a.) Motor Leg, Left: 2 (6b.) Motor Leg, Right: 1 (7.) Limb Ataxia:0 (8.) Sensory:1 (9.) Best Language:3 (10.) Dysarthria:2 (11.) Extinction and Inattention:1 NIHSS Total Score: 22 Results - Laboratory Findings CBC and BMP: 07/31/20 08:32 07/31/20 08:32 Abnormal Lab Findings: Abnormal Labs 07/28/20 07/28/20 07/28/20 23:59 23:59 23:59 WBC 13.2 H RBC 5.49 H Hgb 16.2 H Hct 50.3 H Gillespie % (Auto) Gillespie # (Auto) 0.9 H Seg Neutrophils % 72.4 H Seg Neutrophils # 9.6 H Carbon Dioxide 18 L BUN 22 H Creatinine Glucose 151 H POC Glucose Hemoglobin A1c Total Creatine Kinase HDL Cholesterol Salicylates < 0.3 L Acetaminophen 07/28/20 07/28/20 07/30/20 23:59 23:59 03:46 WBC RBC Hgb Hct [place] % (Auto) [place]illespie # (Auto) Seg Neutrophils % Seg Neutrophils # Carbon Dioxide BUN Creatinine Glucose POC Glucose Hemoglobin A1c Total Creatine Kinase 276 H HDL Cholesterol 30 L Salicylates Acetaminophen 5.0 L 07/30/20 07/30/20 07/30/20 03:46 09:05 12:23 WBC RBC Hgb Hct [place] % (Auto) [place] # (Auto) Seg Neutrophils % Seg Neutrophils # Carbon Dioxide BUN Creatinine Glucose POC Glucose 163 H 150 H Hemoglobin A1c 6.2 H Total Creatine Kinase HDL Cholesterol Salicylates Acetaminophen 07/30/20 07/30/20 07/31/20 17:24 23:04 08:32 WBC 12.2 H RBC Hgb Hct [place] % (Auto) 9.2 H G[place]pie # (Auto) 1.1 H Seg Neutrophils % Seg Neutrophils # 8.5 H Carbon Dioxide BUN Creatinine Glucose POC Glucose 131 H 206 H Hemoglobin A1c Total Creatine Kinase HDL Cholesterol Salicylates Acetaminophen 07/31/20 08:32 WBC RBC Hgb Hct [place] % (Auto) Gillespie # (Auto) Seg Neutrophils % Seg Neutrophils # Carbon Dioxide BUN Creatinine 0.7 L Glucose 179 H POC Glucose Hemoglobin A1c Total Creatine Kinase HDL Cholesterol Salicylates Acetaminophen Assessment and Plan 59 yo male with hth, dm, noted with encephalopathy with aphasia and right-sided weakness. 1. Acute Ischemic Stroke (L MCA territory) - ASA 325 mg PO qday, MRI Brain w/o contrast, CTA Head/Neck w/ & w/o contrast, TTEcho and if CTA Head/Neck does not reveal high grade or critical stenoses, recommend a ALISSA and long-term cardiac monitoring to r/o underlying afib, check LDL/HgbA1C/TSH, telemetry, SBP goal 160-200 mmHg and DBP 80-100 mmHg for 48 more hours. Statin therapy for a goal LDL of 70, when patient passes swallow evaluation. PT/OT/ST/Swallow evaluation. Long-term risk-factor modification, including a strict diet/exercise regimen for secondary stroke prophylaxis. 2. Hypertension - goal SBP 160-200 mmHg and DBP 80-100 mmHg for 48 more hours. 3. Diabetes Mellitus - maintain euglycemia. 4. Right Hemiparesis - pt/ot evaluation/monitoring. 5. Mute / Dysarthria / Dysphagia - st / swallow evaluation/monitoring. Pravin Lentz MD Neurology
[2020-07-31] MEDS ORDERED: hydrALAZINE 20 MG/1 ML INJ IV PRN (13:52)
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
[2020-07-31] MEDS: amLODIPine 10 MG TAB PO SCH (14:31)
[2020-07-31] MEDS: METOPROLOL TARTRATE 50 MG TAB PO SCH ×2 (14:32→22:17)
--- NOTE | 2020-07-31 14:37 | Consultation ---
History of Present Illness - Reason for Consult Consult date: 07/31/20 Left Internal Carotid Stenosis Requesting physician: HARLEY VALE - History of Present Illness The patient is a 59-year-old male who was brought to the emergency department by EMS. Per report his girlfriend called because over the previous 2 days he has been combative and agitated. By report he had no previous history of this type of action. At the scene he required Haldol, Versed, and Benadryl to finally calm him down. He was finally brought to [facility] emergency department for evaluation. Review of the record reveals that initially he was sedated and as that wore off there was some confusion however he was able to speak and apparently ambulate around his room in the emergency department. Since his admission that has changed and the patient now has right hemiparesis with aphasia. Unable to gather any additional history secondary to the aphasia. Past History Past Medical History: diabetes, hypertension, stroke Medications and Allergies Allergies Allergy/AdvReac Type Severity Reaction Status Date / Time No Known Allergies Allergy Verified 07/29/20 09:32 Home Medications Medication Instructions Recorded Confirmed Last Taken Type metFORMIN [Glucophage] 500 mg PO BID 07/30/20 07/30/20 Unknown History Active Meds: Active Medications Amlodipine Besylate (Amlodipine 10 Mg Tab) 10 mg PO QDAY [facility] Last Admin: 07/31/20 14:31 Dose: 10 mg Documented by: Aspirin (Aspirin 325 Mg Tab) 325 mg PO QDAY [facility] Last Admin: 07/31/20 10:05 Dose: 325 mg Documented by: Atorvastatin Calcium (Atorvastatin 40 Mg Tab) 40 mg PO QHS [facility] Last Admin: 07/30/20 22:54 Dose: 40 mg Documented by: Dextrose (Dextrose 50% In Water (25gm) 50 Ml Syringe) 0 ml IV Q30MIN PRN; Protocol PRN Reason: Hypoglycemia Heparin Sodium (Porcine) (Heparin 5,000 Unit/1 Ml Vial) 5,000 unit SUB-Q Q8HR [facility] Last Admin: 07/31/20 14:32 Dose: 5,000 unit Documented by: Hydralazine HCl (Hydralazine 20 Mg/1 Ml Inj) 10 mg IV Q4H PRN PRN Reason: Blood Pressure Last Admin: 07/31/20 10:06 Dose: 10 mg Documented by: Hydralazine HCl (Hydralazine 20 Mg/1 Ml Inj) 5 mg IV Q30MIN PRN PRN Reason: Hypertension Insulin Human Lispro (Insulin Lispro 100 Unit/Ml) 0 unit SUB-Q ACHS [facility]; Protocol Last Admin: 07/31/20 12:37 Dose: Not Given Documented by: Labetalol HCl (Labetalol 20 Mg/4 Ml Inj) 10 mg IV Q5MIN PRN PRN Reason: to maintain SBP < 180 Metoprolol Tartrate (Metoprolol Tartrate 50 Mg Tab) 50 mg PO BID [facility] Last Admin: 07/31/20 14:32 Dose: 50 mg Documented by: Pantoprazole Sodium (Pantoprazole 40 Mg Tab) 40 mg PO QDAC [facility] Last Admin: 07/31/20 10:06 Dose: 40 mg Documented by: Sodium Chloride (Sodium Chloride 0.9% 10 Ml Flush Syringe) 10 ml IV PRN PRN PRN Reason: LINE FLUSH Last Admin: 07/31/20 10:08 Dose: 10 ml Documented by: Review of Systems ROS unobtainable: due to mental status (aphasic) Exam - Constitutional Vitals: Temp Pulse Resp BP Pulse Ox 97.9 F 97 H 20 174/79 98 07/31/20 09:17 07/31/20 14:31 07/31/20 09:17 07/31/20 14:31 07/31/20 09:28 General appearance: Present: no acute distress - Neck Neck: Present: supple - Respiratory Respiratory effort: normal - Cardiovascular Rhythm: regular - Extremities Extremity abnormal: pulses diminished (nonpalpable pedal pulses bilaterally) - Abdominal General gastrointestinal: Present: soft, non-distended - Musculoskeletal Musculoskeletal: right sided weakness (right mónica-neglect) - Neurologic Neurologic: focal deficits (no movement of right upper or lower extremity, aphasia) Results - Labs CBC & Chem 7: 07/31/20 08:32 07/31/20 08:32 Labs: Abnormal lab results 07/30/20 07/30/20 07/30/20 Range/Units 12:23 17:24 23:04 WBC (4.5-11.0) K/mm3 [place] % (Auto) (0.0-7.3) % [place] # (Auto) (0.0-0.8) K/mm3 Seg Neutrophils # (1.8-7.7) K/mm3 Creatinine (0.8-1.3) mg/dL Glucose (75-100) mg/dL POC Glucose 150 H 131 H 206 H (70-105) mg/dL 07/31/20 07/31/20 07/31/20 Range/Units 08:32 08:32 11:25 WBC 12.2 H (4.5-11.0) K/mm3 [place] % (Auto) 9.2 H (0.0-7.3) % [place] # (Auto) 1.1 H (0.0-0.8) K/mm3 Seg Neutrophils # 8.5 H (1.8-7.7) K/mm3 Creatinine 0.7 L (0.8-1.3) mg/dL Glucose 179 H (75-100) mg/dL POC Glucose 200 H (70-105) mg/dL - Imaging and Cardiology CT Scan - head: image reviewed (CTA Head/Neck Reviewed) Assessment and Plan The patient is a 59-year-old male who presented with mental status changes including agitation and confusion and now has an aphasia with right hemiparesis. 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 CTA of his neck confirms the occlusion of his left internal carotid artery as well as minimal disease of his right internal carotid artery. 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 Although this is likely the cause of the stroke I would continue to rule out a cardiac source with a TTE versus a ALISSA. If the hea rt is not a source then again the most likely source is some syndrome. The recommendation for treatment would be statin as well as dual antiplatelet therapy with Plavix 75 mg p.o. daily and aspirin 81 mg p.o. daily. If the patient does have some improvement in his motor and speech he may require s urgical versus endovascular intervention in the future to exclude the stump from flow. I would not recommend this at this time given his current symptoms.
--- NOTE | 2020-07-31 19:48 | Progress Note ---
Subjective - Reason for Consult Consult date: 07/31/20 Reason for consult: MHE Requesting physician: MP SANTOS - Chief Complaint Chief complaint: Progress Patient in room sleeping. Pt undistrubed today. MENTAL STATUS EXAMINATION sleeping today DX: ALTERED MENTAL STATUS Treatment Plan CT report read. Acute concerns for CVA. Will follow for med management but no acute inpatient psych recommended MEDICATIONS: Risks, benefits and alternatives of medications discussed with the patient, questions answered and consent obtained from patient. PSYCHOTHERAPY: Supportive psychotherapy provided MEDICAL: Per primary team DELIRIUM PRECAUTIONS: Please re-orient patient frequently, keep lights on during the day, and minimize benzodiazepines and opiates as these medications could worsen patient's confusion. 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 Case discussed with Dr. Olivier who agrees with current disposition LEGAL STATUS: FOLLOW-UP: Will follow Thank you for the consult. Please contact with any questions and/or concerns. Mental Status Exam - Vital signs Last Vital Signs Temp 99 F 07/31/20 18:31 Pulse 68 07/31/20 18:01 Resp 20 07/31/20 09:17 BP 162/74 07/31/20 18:30 Pulse Ox 99 07/31/20 18:01
[2020-07-31] MEDS: CLOPIDOGREL 75 MG TAB PO SCH (22:18)
[2020-07-31] MEDS: INSULIN REGULAR, HUMAN 100 UNITS/1 ML SUB-Q SCH (22:19)
[2020-08-01] MEDS: HEPARIN 5,000 UNIT/1 ML VIAL SUB-Q SCH ×3 (06:20→22:28)
[2020-08-01] MEDS: PANTOPRAZOLE 40 MG TAB PO SCH (08:27)
[2020-08-01] MEDS: INSULIN REGULAR, HUMAN 100 UNITS/1 ML SUB-Q SCH ×4 (08:35→22:42)
[2020-08-01] MEDS: hydrALAZINE 20 MG/1 ML INJ IV PRN (08:59)
[2020-08-01] MEDS: ASPIRIN EC 81 MG TAB PO SCH (09:00)
[2020-08-01] MEDS: amLODIPine 10 MG TAB PO SCH (09:01)
[2020-08-01] MEDS: CLOPIDOGREL 75 MG TAB PO SCH (09:01)
[2020-08-01] MEDS: METOPROLOL TARTRATE 50 MG TAB PO SCH ×2 (09:02→22:27)
[2020-08-01] MEDS ORDERED: METOPROLOL TARTRATE 50 MG TAB PO SCH (10:00)
--- NOTE | 2020-08-01 10:19 | Progress Note ---
Assessment and Plan Patient has not yet undergone cardiac evaluation for possible embolic source. 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 We will continue to follow and see if the patient improves. At this time, no intervention is planned. Subjective Date of service: 08/01/20 Principal diagnosis: CVA Interval history: Patient with a history of altered mental status with unknown baseline mental status, still with right hemiparesis and expressive aphasia. Objective - Constitutional Vitals: Vital Signs - 12hr 08/01/20 08/01/20 08/01/20 04:55 05:37 05:47 Temperature 98.2 F 98.2 F Pulse Rate 88 93 H 88 Respiratory 20 20 Rate Blood Pressure 89/40 160/83 O2 Sat by Pulse 96 95 Oximetry 08/01/20 08/01/20 08/01/20 08:07 08:10 08:59 Temperature 98.2 F Pulse Rate 91 H 104 H Respiratory 18 Rate Blood Pressure 189/88 O2 Sat by Pulse 99 Oximetry 08/01/20 08/01/20 09:01 09:02 Temperature Pulse Rate 104 H 104 H Respiratory Rate Blood Pressure O2 Sat by Pulse Oximetry General appearance: Present: other (Expressive aphasia) - Labs CBC & Chem 7: 07/31/20 08:32 07/31/20 08:32 Labs: Abnormal lab results 07/31/20 07/31/20 07/31/20 Range/Units 11:25 15:56 22:01 POC Glucose 200 H 213 H 221 H (70-105) mg/dL 08/01/20 Range/Units 08:10 POC Glucose 164 H (70-105) mg/dL Medications & Allergies - Medications Allergies/Adverse Reactions: Allergies No Known Allergies Allergy (Verified 07/29/20 09:32) Home Medications: Home Medications Medication Instructions Recorded Confirmed Last Taken Type metFORMIN [Glucophage] 500 mg PO BID 07/30/20 07/30/20 Unknown History Active Medications: Generic Name Dose Route Start Last Admin Trade Name Freq PRN Reason Stop Dose Admin Amlodipine Besylate 10 mg 07/31/20 14:30 08/01/20 09:01 Amlodipine 10 Mg Tab PO 10 mg QDAY [facility] Administration Aspirin 81 mg 08/01/20 10:00 08/01/20 09:00 Aspirin Ec 81 Mg Tab PO 81 mg QDAY [facility] Administration Atorvastatin Calcium 40 mg 07/30/20 22:00 07/31/20 22:18 Atorvastatin 40 Mg Tab PO 40 mg QHS [facility] Administration Clopidogrel Bisulfate 75 mg 07/31/20 18:00 08/01/20 09:01 Clopidogrel 75 Mg Tab PO 75 mg QDAY [facility] Administration Dextrose 0 ml 07/29/20 23:41 Dextrose 50% In Water (25gm) 50 Ml Syringe IV Q30MIN PRN Hypoglycemia Protocol Heparin Sodium (Porcine) 5,000 unit 07/30/20 06:00 08/01/20 06:20 Heparin 5,000 Unit/1 Ml Vial SUB-Q 5,000 unit Q8HR [facility] Administration Hydralazine HCl 10 mg 07/30/20 02:00 08/01/20 08:59 Hydralazine 20 Mg/1 Ml Inj IV 10 mg Q4H PRN Administration Blood Pressure Hydralazine HCl 5 mg 07/31/20 13:52 Hydralazine 20 Mg/1 Ml Inj IV Q30MIN PRN Hypertension Insulin Human Regular 0 units 07/31/20 22:04 08/01/20 08:35 Insulin Regular, Human 100 Units/1 Ml SUB-Q 2 units ACHS [facility] Administration Protocol Labetalol HCl 10 mg 07/29/20 23:30 Labetalol 20 Mg/4 Ml Inj IV Q5MIN PRN to maintain SBP < 180 Metoprolol Tartrate 100 mg 08/01/20 22:00 Metoprolol Tartrate 50 Mg Tab PO BID [facility] Metoprolol Tartrate 50 mg 08/01/20 10:00 Metoprolol Tartrate 50 Mg Tab PO 08/01/20 12:00 ONCE [facility] Pantoprazole Sodium 40 mg 07/30/20 07:30 08/01/20 08:27 Pantoprazole 40 Mg Tab PO 40 mg QDAC [facility] Administration Sodium Chloride 10 ml 07/29/20 23:30 07/31/20 10:08 Sodium Chloride 0.9% 10 Ml Flush Syringe IV 10 ml PRN PRN Administration LINE FLUSH HEART Score - HEART Score Troponin: Troponin T < 0.010 ng/mL (0.00-0.029) 07/28/20 23:59
--- NOTE | 2020-08-01 14:04 | Electrocardiograph Report ---
[facility] Test Date: 2020-07-28 Test Time: 23:51:37 Pat Name: KARIS REYES Department: Room: A475 Gender: M Bag Turner: HANK : 1960 Requested By: MP SANTOS Order Number: [id number] Reading MD: Gretchen Jamil Measurements Intervals [place] Rate: 86 P: 71 [place]: 124 QRS: 60 QRSD: 71 T: 28 QT: 359 QTc: 429 Interpretive Statements Sinus rhythm Probable left atrial enlargement Probable left ventricular hypertrophy Anterior Q waves, possibly due to LVH Nonspecific ST abnormality No previous ECG available for comparison Electronically Signed On 08-01-2020 14:04:16 EDT by Gretchen Jamil
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
[2020-08-01] MEDS: LISINOPRIL 20 MG TAB PO SCH (22:26)
[2020-08-02] MEDS: hydrALAZINE 20 MG/1 ML INJ IV PRN ×2 (01:36→21:45)
[2020-08-02] MEDS: HEPARIN 5,000 UNIT/1 ML VIAL SUB-Q SCH ×3 (06:02→21:45)
[2020-08-02] MEDS: PANTOPRAZOLE 40 MG TAB PO SCH ×2 (11:57→12:06)
[2020-08-02] MEDS: LISINOPRIL 20 MG TAB PO SCH ×2 (11:58→12:07)
[2020-08-02] MEDS: CLOPIDOGREL 75 MG TAB PO SCH ×2 (11:58→12:07)
[2020-08-02] MEDS: METOPROLOL TARTRATE 50 MG TAB PO SCH ×4 (11:58→22:16)
[2020-08-02] MEDS: amLODIPine 10 MG TAB PO SCH ×2 (11:58→12:06)
[2020-08-02] MEDS: ASPIRIN EC 81 MG TAB PO SCH ×2 (11:58→12:07)
[2020-08-02] MEDS: INSULIN REGULAR, HUMAN 100 UNITS/1 ML SUB-Q SCH ×3 (12:06→22:20)
[2020-08-02] MEDS: INSULIN LISPRO 100 UNIT/ML SUB-Q SCH (15:32)
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
[2020-08-03] MEDS: HEPARIN 5,000 UNIT/1 ML VIAL SUB-Q SCH ×3 (04:59→21:56)
[2020-08-03] MEDS: INSULIN REGULAR, HUMAN 100 UNITS/1 ML SUB-Q SCH ×5 (08:20→21:56)
[2020-08-03] MEDS: PANTOPRAZOLE 40 MG TAB PO SCH (09:00)
[2020-08-03] MEDS: amLODIPine 10 MG TAB PO SCH (09:00)
[2020-08-03] MEDS: ASPIRIN EC 81 MG TAB PO SCH (09:00)
[2020-08-03] MEDS: METOPROLOL TARTRATE 50 MG TAB PO SCH ×2 (09:00→21:57)
[2020-08-03] MEDS: CLOPIDOGREL 75 MG TAB PO SCH (09:01)
[2020-08-03] MEDS: LISINOPRIL 20 MG TAB PO SCH (09:01)
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
[2020-08-04] MEDS: HEPARIN 5,000 UNIT/1 ML VIAL SUB-Q SCH ×3 (06:12→22:06)
[2020-08-04] MEDS: METOPROLOL TARTRATE 50 MG TAB PO SCH ×2 (09:39→10:11)
[2020-08-04] MEDS: LISINOPRIL 20 MG TAB PO SCH ×2 (09:39→10:11)
[2020-08-04] MEDS: CLOPIDOGREL 75 MG TAB PO SCH ×2 (09:39→10:11)
[2020-08-04] MEDS: amLODIPine 10 MG TAB PO SCH ×2 (09:39→10:11)
[2020-08-04] MEDS: ASPIRIN EC 81 MG TAB PO SCH ×2 (09:39→10:11)
[2020-08-04] MEDS: PANTOPRAZOLE 40 MG TAB PO SCH (09:40)
[2020-08-04] MEDS: INSULIN REGULAR, HUMAN 100 UNITS/1 ML SUB-Q SCH ×4 (09:40→22:05)
--- NOTE | 2020-08-04 12:39 | Progress Note ---
Subjective - Reason for Consult Consult date: 08/04/20 Reason for consult: delirium - Chief Complaint Chief complaint: Per Nursing staff: states that the patient is confused, refusing medicaions, combative, does respond to questioning. I attempted to interview the patient, he just stared at me. I'm unsure of how much the patient understands. He never responded to any questioning, only stared. MENTAL STATUS EXAMINATION sleeping today DX: ALTERED MENTAL STATUS Treatment Plan Valproic 500mg IV q12h Mirtazepine 7.5mg po qhs Risks, benefits and alternatives of medications discussed with the patient, questions answered and consent obtained from patient. PSYCHOTHERAPY: Supportive psychotherapy provided MEDICAL: Per primary team DELIRIUM PRECAUTIONS: Please re-orient patient frequently, keep lights on during the day, and minimize benzodiazepines and opiates as these medications could worsen patient's confusion. TURNTABLE MAN: Defer to primary DISPOSITION: Do Not Recommend acute inpatient psychiatric hospitalization at this time. FOLLOW-UP: Will follow Thank you for the consult. Please contact with any questions and/or concerns. Case discussed with Dr. Olivier who agrees with current disposition Mental Status Exam - Vital signs Last Vital Signs Temp 98.0 F 08/04/20 04:02 Pulse 105 H 08/04/20 08:52 Resp 18 08/04/20 07:35 BP 143/99 08/04/20 07:35 Pulse Ox 100 08/04/20 07:35
[2020-08-04] MEDS: hydrALAZINE 20 MG/1 ML INJ IV PRN (14:23)
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
[2020-08-04] MEDS ORDERED: SODIUM CHLORIDE 0.9% 1000 ML 1,000 ML ONE (16:30)
[2020-08-04 17:00] LABS: Basophils % (Auto) 0.1 % (0.0-1.8); Hematocrit 53.8 % (35.5-45.6); Hemoglobin 17.1 gm/dl (11.8-15.2); Lymphocytes # (Auto) 2.6 K/mm3 (1.2-5.4); Lymphocytes % (Auto) 13.8 % (13.4-35.0); Mean Corpuscular HGB Conc 32 % (32-34); Mean Corpuscular Volume 93 fl (84-94); Monocytes # (Auto) 1.3 K/mm3 (0.0-0.8); Platelet Count 192 K/mm3 (140-440); Red Blood Count 5.78 M/mm3 (3.65-5.03)
--- NOTE | 2020-08-04 17:15 | XRay Report ---
CHEST 1 VIEW 08/04/2020 4:00 PM INDICATION / CLINICAL INFORMATION: pulmonary congestion. COMPARISON: One view of the chest from 07/28/2020. FINDINGS: SUPPORT DEVICES: None. HEART / MEDIASTINUM: No significant abnormality. LUNGS / PLEURA: Clear lungs. No significant pleural effusion. No pneumothorax. ADDITIONAL FINDINGS: No significant additional findings. IMPRESSION: 1. No acute abnormality of the chest. Signer Name: Francesco Momin MD Signed: 08/04/2020 5:10 PM Workstation Name: [id number]
[2020-08-04 17:19] LABS: Alanine Aminotransferase 13 units/L (7-56); Albumin 4.5 g/dL (3.9-5); BUN/Creatinine Ratio 28; Blood Urea Nitrogen 56 mg/dL (9-20); Calcium 10.7 mg/dL (8.4-10.2); Hemolysis Index 16
--- NOTE | 2020-08-04 17:45 | Event Note ---
Date: 08/04/20 Received a call from the nurse pertaining to patient not being responsive. At the bedside, code was called. Patient did have a pulse, agonal breathing, reported oxygen levels in the 80s, patient was bagged with oxygen, levels resolved to 97%. On exam patient did have crackles in his lungs. Patient was brought down to the ICU, blood pressure was found to be in the 70s systolics, patient was given a bolus of normal saline and blood pressure resolved to 153 systolics. Patient became more responsive, head turning to the left and eyes turning to the left, patient did have some right-sided neglect. Patient was moving his left arm, patient was moaning and breathing on his own. Patient had nonrebreather mask applied. Labs significant for elevated WBC of 19,000, patient does have BARBARA which is most likely secondary to his decrease of oral intake. Troponins negative, EKG reviewed, repolarization abnormality but no significant ischemia seen. ABG normal, patient was not acidotic. Based on the patient's response neurologically, there is concern for worsening CVA. Pending CT of the brain. Patient is possibly septic, no source identified, chest x-ray without any pulmonary infiltrates or edema, however patient does have urine catheter. Will obtain urinalysis, urine culture, blood cultures, start patient on vancomycin renally dosed and cefepime. Critical care, Dr. Darling has been updated and is aware of the patient. Continue to monitor patient in the ICU. Guarded prognosis. I called family, common-law and updated her on the situation, all questions answered.
[2020-08-04] MEDS ORDERED: SODIUM CHLORIDE 0.9% 1000 ML 1,000 ML IV SCH (18:00)
--- NOTE | 2020-08-04 18:16 | Cat Scan Report ---
CT BRAIN: 08/04/2020 INDICATION / CLINICAL INFORMATION: History of stroke. Neurologic deficits.. COMPARISON: CT brain 07/31/2020. CT brain 07/29/2020. FINDINGS: BRAIN/INTRACRANIAL STRUCTURES: Unenhanced CT images of the brain were obtained and compared to the re cent prior exams. There has been further evolution of previously seen left-sided subcortical ischemic changes, involvin g left frontal and parietal deep white matter, and extending into the region of the anterior aspect o f the internal capsule. Hypoattenuation in the anterior corpus callosum is also present, consistent w ith evolving ischemic change. Some higher left parietal cortical hypoattenuation is also again noted. There is no evidence of acute superimposed ischemic injury, hemorrhage, or abnormal extra-axial fluid collections. Ventricles and sulci remain within normal limits of size and shape. Metallic density is again noted in the left suboccipital scalp. EXTRACRANIAL STRUCTURES: Unremarkable. IMPRESSION: Evolving left sided subcortical ischemic injury, with no evidence of hemorrhage. All CT scans at this location are performed using dose reduction to ALARA by means of automated expos ure control. Signer Name: Gurwinder Hilton MD Signed: 08/04/2020 6:11 PM Workstation Name: [id number]
[2020-08-04] MEDS ORDERED: VANCOMYCIN PHARMACY TO DOSE IV SCH (19:00)
[2020-08-04 19:39] LABS: Bilirubin,Urine NEG (Negative); Blood,Urine NEG (Negative); Color,Urine Amber (Yellow); Mucus,Urine 2+ /HPF; Urobilinogen,Urine < 2.0 mg/dL (<2.0)
[2020-08-04] MEDS ORDERED: VANCOMYCIN 1,250 MG in SODIUM CHLORIDE 0.9% 250ML 250 ML IV ONE (20:00)
[2020-08-04] MEDS: CEFEPIME/NS 1 GM/100 ML 1 GM/100 ML BAG IV SCH (20:17)
[2020-08-04] MEDS ORDERED: VANCOMYCIN 1,000 MG/20 ML IV SCH (22:00)
[2020-08-04] MEDS: VALPROATE SODIUM 500 MG in SODIUM CHLORIDE 0.9% 100 ML IV SCH (22:01)
[2020-08-04] MEDS: MIRTAZAPINE 15 MG TAB PO SCH (22:02)
[2020-08-05] MEDS: D5W/0.45% NACL 1,000 ML IV SCH ×2 (03:28→18:52)
[2020-08-05] MEDS: CEFEPIME/NS 1 GM/100 ML 1 GM/100 ML BAG IV SCH ×2 (06:15→18:51)
[2020-08-05] MEDS: HEPARIN 5,000 UNIT/1 ML VIAL SUB-Q SCH ×3 (06:18→22:11)
[2020-08-05 08:30] LABS: Hematocrit 53.1 % (35.5-45.6); Hemoglobin 17.3 gm/dl (11.8-15.2); Mean Corpuscular HGB Conc 33 % (32-34); Mean Corpuscular Volume 92 fl (84-94); Platelet Count 161 K/mm3 (140-440)
[2020-08-05] MEDS: PANTOPRAZOLE 40 MG TAB PO SCH (08:52)
[2020-08-05] MEDS: INSULIN REGULAR, HUMAN 100 UNITS/1 ML SUB-Q SCH ×4 (08:52→22:20)
--- NOTE | 2020-08-05 09:42 | Progress Note ---
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 19:00 08/05/20 06:15 Cefepime/Ns 1 Gm/100 Ml IV 200 mls/hr Q12H [facility] Administration Protocol Dextrose/Sodium Chloride 1,000 mls @ 75 mls/hr 08/05/20 04:00 08/05/20 03:28 D5/0.45ns IV 75 mls/hr DIRECT [facility] Administration Insulin Human Regular 0 units 07/31/20 22:04 08/05/20 08:52 Insulin Regular, Human 100 Units/1 Ml SUB-Q 3 units ACHS [facility]PA Administration Protocol Labetalol HCl 10 mg 07/29/20 23:30 Labetalol 20 Mg/4 Ml Inj IV Q5MIN PRN to maintain SBP < 180 Metoprolol Tartrate 5 mg 08/04/20 17:55 Metoprolol Tartrate 5 Mg/5 Ml Inj IV 08/09/20 17:54 Q6HR PRN Tachyarrhythmias Mirtazapine 7.5 mg 08/04/20 22:00 08/04/20 22:02 Mirtazapine 15 Mg Tab PO Not Given QHS SHILPA Pantoprazole Sodium 40 mg 07/30/20 07:30 08/05/20 08:52 Pantoprazole 40 Mg Tab PO Not Given QDAC [facility]ILPA Simple Syrup 15 ml 08/05/20 12:01 Simple Syrup 15 Ml FEEDTUBE PRN PRN Hypoglycemia Simple Syrup 30 ml 08/05/20 12:01 Simple Syrup 15 Ml FEEDTUBE PRN PRN Hypoglycemia Sodium Bicarbonate 325 mg 08/05/20 12:01 Sodium Bicarbonate 325 Mg Tab FEEDTUBE PRN PRN For Clogged Feeding Tube Sodium Chloride 10 ml 07/29/20 23:30 07/31/20 10:08 Sodium Chloride 0.9% 10 Ml Flush Syringe IV 10 ml PRN PRN Administration LINE FLUSH Nutrition/Malnutrition Assess - Dietary Evaluation Nutrition/Malnutrition Findings: Nutrition Notes Start: 07/30/20 11:38 Freq: Status: Active Protocol: Document 08/05/20 11:47 CW (Rec: 08/05/20 12:00 CW [id number]) Nutrition Notes Need for Assessment generated from: MD Order Initial or Follow up Reassessment Current Diagnosis Diabetes,Hypertension Other Pertinent Diagnosis AMS, Bipolar d/o, suspected CVA Current Diet NPO Labs/Tests K 5.7 BUN 66 Cr 1.6 BG 214 Pertinent Medications Humulin D5 1/2NS AT 75ml/hr Height 5 ft 7 in Weight 75.9 kg [place] Body Weight (kg) 67.27 BMI 26.2 Weight change and time frame 6.8% weight gain x 6 days noted. Will monitor Subjective/Other Information Consult for write/manage TF. F /U for ONS/Intakes/ POC. Pt was prescribed with appetite stimulant but has not yet been given d/t pt cognition. CVA suspected and pt has difficulty swallowing per notes. Dobhoff placed, recommend nepro TF d/t kidney related labs Percent of energy/protein needs met: Negligible Burn Absent Trauma Absent GI Symptoms None Current % PO Negligible Minimum of two criteria No physical signs of malnutrition #1 Nutrition Diagnosis Inadequate oral intake Diagnosis Progress(for reassessment Continues documentation) Is patient on ventilator? No Is Patient Ambulatory and/or Out of Bed No REE-([facility]-confined to bed) 1838.004 Calculation Used for Recommendations [facility] Additional Notes Pro needs 0.8-1g/k-76g/ day Fluid needs 1ml/kcal Nutrition Intervention Change Diet Order: d/c PO diet; Inititate TF via dobhoff Nutrition Support: Nepro at 42 ml/hr with a free water flush of 180 ml q4h Kcal 1,814 Protein (gm) 82 Fluid (mL) 734 Add Supplement/Snack (indicate name/kcal d/c /protein ) Goal #1 TF initiate and tolerance Anticipated Discharge Needs: unable to determine at this time Follow-Up By: 08/07/20 Additional Comments F/U for TF initiate, TF at goal/
[2020-08-05 09:58] LABS: RBC Morphology Normal; Total Cells Counted 100
[2020-08-05 09:59] LABS: Platelet Estimate Consistent w Auto
[2020-08-05 10:35] LABS: Calcium 10.2 mg/dL (8.4-10.2)
[2020-08-05] MEDS: VALPROATE SODIUM 500 MG in SODIUM CHLORIDE 0.9% 100 ML IV SCH (10:58)
--- NOTE | 2020-08-05 11:08 | XRay Report ---
ABDOMEN 2 VIEWS INDICATION / CLINICAL INFORMATION: NG Tube placement. COMPARISON: None available. FINDINGS: TUBES / LINES: Esophagogastric tube tip and sidehole project over the left upper quadrant of the abdo men in the region of the stomach. BOWEL GAS PATTERN: No significant abnormality. FREE AIR / EXTRALUMINAL GAS: None seen. ADDITIONAL FINDINGS: No significant additional findings. CHEST: Visualized chest shows no significant abnormality. IMPRESSION: 1. Esophagogastric tube projects in expected position. Signer Name: Ty Woodson MD Signed: 08/05/2020 11:04 AM Workstation Name: [id number]
[2020-08-05] MEDS ORDERED: INSULIN REGULAR, HUMAN 100 UNITS/1 ML SUB-Q ONE (11:18)
[2020-08-05] MEDS ORDERED: SODIUM POLYSTYRENE 15 GM/60 ML ORAL LIQD PO ONE ×2 (11:19→17:00)
--- NOTE | 2020-08-05 11:57 | Consultation ---
History of Present Illness - Reason for Consult Consult date: 08/05/20 acute renal failure Requesting physician: SILVIA RIOS - History of Present Illness This is a 59 yo M with past medical history of hypertension, Type 2 DM, bipolar disorder, who initially presented to ER with agitation, combative behavior, altered mental status. Upon further evaluation with head CT/CTA, pt was found to have acute CVA of L MCA territory, carotid doppler today showed near occlusion of the left carotid artery. Pt is treated with aspirin and statin. on 08/04 patient was found to be not responsive, was found to be hypoxic with O2 sat at low 80s, systolic BP was low at 70s, but improved after IV NS bolus. Labs showed leukocytosis with WBC > 19K, lactic acid > 4 along with elevated BUN/Cr at 56/2 mg/dl from Cr of 0.7mg/dl on 07/31/20, along with mild hypernatremia for which korey al consult is requested. Past History Past Medical History: diabetes, hypertension, stroke Medications and Allergies Allergies Allergy/AdvReac Type Severity Reaction Status Date / Time No Known Allergies Allergy Verified 07/29/20 09:32 Home Medications Medication Instructions Recorded Confirmed Last Taken Type metFORMIN [Glucophage] 500 mg PO BID 07/30/20 07/30/20 Unknown History Active Meds: Active Medications Aspirin (Aspirin Ec 81 Mg Tab) 81 mg PO QDAY [facility] Last Admin: 08/04/20 10:11 Dose: Not Given Documented by: Atorvastatin Calcium (Atorvastatin 40 Mg Tab) 40 mg PO QHS [facility] Last Admin: 08/04/20 22:02 Dose: Not Given Documented by: Clopidogrel Bisulfate (Clopidogrel 75 Mg Tab) 75 mg PO QDAY [facility] Last Admin: 08/04/20 10:11 Dose: Not Given Documented by: Dextrose (Dextrose 50% In Water (25gm) 50 Ml Syringe) 0 ml IV Q30MIN PRN; Protocol PRN Reason: Hypoglycemia Heparin Sodium (Porcine) (Heparin 5,000 Unit/1 Ml Vial) 5,000 unit SUB-Q Q8HR [facility] Last Admin: 08/05/20 06:18 Dose: 5,000 unit Documented by: Hydralazine HCl (Hydralazine 20 Mg/1 Ml Inj) 10 mg IV Q4H PRN PRN Reason: Blood Pressure Last Admin: 08/04/20 14:23 Dose: 10 mg Documented by: Valproate Sodium 500 mg/ (Sodium Chloride) 105 mls @ 100 mls/hr IV Q12HR [facility] Last Admin: 08/05/20 10:58 Dose: 100 mls/hr Documented by: Cefepime HCl (Cefepime/Ns 1 Gm/100 Ml) 1 gm in 100 mls @ 200 mls/hr IV Q12H [facility]; Protocol Last Admin: 08/05/20 06:15 Dose: 200 mls/hr Documented by: Dextrose/Sodium Chloride (D5/0.45ns) 1,000 mls @ 75 mls/hr IV DIRECT [facility] Last Admin: 08/05/20 03:28 Dose: 75 mls/hr Documented by: Insulin Human Regular (Insulin Regular, Human 100 Units/1 Ml) 0 units SUB-Q ACHS [facility]; Protocol Last Admin: 08/05/20 08:52 Dose: 3 units Documented by: Labetalol HCl (Labetalol 20 Mg/4 Ml Inj) 10 mg IV Q5MIN PRN PRN Reason: to maintain SBP < 180 Metoprolol Tartrate (Metoprolol Tartrate 5 Mg/5 Ml Inj) 5 mg IV Q6HR PRN PRN Reason: Tachyarrhythmias Stop: 08/09/20 17:54 Mirtazapine (Mirtazapine 15 Mg Tab) 7.5 mg PO QHS [facility] Last Admin: 08/04/20 22:02 Dose: Not Given Documented by: Pantoprazole Sodium (Pantoprazole 40 Mg Tab) 40 mg PO QDAC [facility] Last Admin: 08/05/20 08:52 Dose: Not Given Documented by: Sodium Chloride (Sodium Chloride 0.9% 10 Ml Flush Syringe) 10 ml IV PRN PRN PRN Reason: LINE FLUSH Last Admin: 07/31/20 10:08 Dose: 10 ml Documented by: Review of Systems All systems: negative Constitutional: weakness, malaise, lethargy Exam - Vital Signs Vital signs: Vital Signs Pulse Resp 110 H 28 H 07/28/20 23:34 07/28/20 23:34 - General Appearance General appearance: well-developed, well-nourished, appears stated age EENT: ATNC, PERRL, mucous membranes moist Neck: Present: neck supple Respiratory: Decreased Breath Sounds Heart: regular, S1S2 Gastrointestinal: Present: normoactive bowel sounds Integumentary: no rash Results - Lab Results 08/05/20 07:24 08/05/20 07:24 Most recent lab results ABG pH 7.387 (7.320-7.450) 08/04/20 16:49 ABG O2 Saturation 92.5 (0-100) 08/04/20 16:49 Calcium 10.2 mg/dL (8.4-10.2) 08/05/20 07:24 Assessment and Plan - Patient Problems (1) Acute kidney injury Current Visit: Yes Status: Acute Plan to address problem: acute kidney injury most likely pre-renal azotemia in the setting of s epsis/hypotension, poor po intake. check urine lytes, urine P/C ratio. renal function marginally better after IV NS bolus, cont IVF with hypotonic saline given persistent hypernatremia and hyperchloremic metabolic acidosis. Avoid further nephrotoxins, NSAIDs, IV contrast. (2) Hypernatremia Current Visit: Yes Status: Acute Plan to address problem: cont IVF with D5 1/2 NS, increase PO free water intake as tolerated (3) Metabolic acidosis Current Visit: Yes Status: Acute (4) Acute CVA (cerebrovascular accident) Current Visit: Yes Status: Acute Plan to address problem: on ASA, statin, tight glucose control (5) Hypertension Current Visit: Yes Status: Acute Qualifiers: Hypertension type: essential hypertension Qualified Code(s): I10 - Essential (primary) hypertension Plan to address problem: off anti hypertensives d/t recent hypotension/possible sepsis
[2020-08-05] MEDS ORDERED: SODIUM BICARBONATE 325 MG TAB FEEDTUBE PRN (12:01)
[2020-08-05] MEDS ORDERED: LIPASE 10,500/PROTEASE 25,000/AMYLASE 43,750 (UNITS) DR CAP FEEDTUBE PRN (12:01)
[2020-08-05] MEDS ORDERED: SIMPLE SYRUP 15 ML FEEDTUBE PRN ×2 (12:01)
--- NOTE | 2020-08-05 12:37 | Nuclear Medicine Report ---
NUCLEAR MEDICINE PERFUSION LUNG SCAN INDICATION / CLINICAL INFORMATION: Shortness of breath. TECHNIQUE: 5.2 mCi of Tc-99m MAA were given by IV. COMPARISON: Chest radiograph dated 08/04/2020. FINDINGS: PERFUSION: No significant perfusion defects. ADDITIONAL FINDINGS: None. IMPRESSION: 1. Low probability for pulmonary embolism. Signer Name: Nghia Burroughs MD Signed: 08/05/2020 12:32 PM Workstation Name: [id number]
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
[2020-08-05] MEDS: CLOPIDOGREL 75 MG TAB PO SCH (17:15)
[2020-08-05] MEDS: ASPIRIN EC 81 MG TAB PO SCH (17:15)
[2020-08-05] MEDS: METOPROLOL TARTRATE 5 MG/5 ML INJ IV PRN (18:51)
[2020-08-05] MEDS ORDERED: VANCOMYCIN/NS 1 GM/250 ML 1 GM/250 ML BAG IV SCH (20:00)
[2020-08-05] MEDS: MIRTAZAPINE 15 MG TAB PO SCH (22:10)
[2020-08-05 23:19] LABS: Creatinine,Urine 142.2 mg/dL (0.1-20.0)
[2020-08-06] MEDS: METOPROLOL TARTRATE 5 MG/5 ML INJ IV PRN ×2 (01:18→04:44)
[2020-08-06] MEDS: VALPROATE SODIUM 500 MG in SODIUM CHLORIDE 0.9% 100 ML IV SCH ×3 (01:18→23:07)
[2020-08-06] MEDS: HEPARIN 5,000 UNIT/1 ML VIAL SUB-Q SCH ×4 (04:47→22:51)
[2020-08-06 05:33] LABS: Hematocrit 47.8 % (35.5-45.6); Hemoglobin 15.4 gm/dl (11.8-15.2); Mean Corpuscular HGB Conc 32 % (32-34); Mean Corpuscular Volume 92 fl (84-94); Platelet Count 149 K/mm3 (140-440); Red Blood Count 5.19 M/mm3 (3.65-5.03); Red Cell Distribution Width 14.9 % (13.2-15.2)
[2020-08-06 05:49] LABS: BUN/Creatinine Ratio 36; Blood Urea Nitrogen 51 mg/dL (9-20); Calcium 9.6 mg/dL (8.4-10.2); Hemolysis Index 5
[2020-08-06] MEDS: PANTOPRAZOLE 40 MG TAB PO SCH (08:40)
[2020-08-06] MEDS: CLOPIDOGREL 75 MG TAB PO SCH (09:01)
[2020-08-06] MEDS: ASPIRIN EC 81 MG TAB PO SCH (09:01)
[2020-08-06] MEDS: INSULIN REGULAR, HUMAN 100 UNITS/1 ML SUB-Q SCH ×4 (09:02→23:08)
[2020-08-06] MEDS: CEFEPIME/NS 1 GM/100 ML 1 GM/100 ML BAG IV SCH ×2 (09:06→20:04)
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
--- NOTE | 2020-08-06 09:17 | XRay Report ---
CHEST 1 VIEW 08/06/2020 8:54 AM INDICATION / CLINICAL INFORMATION: hypoxia. COMPARISON: 08/04/2020 FINDINGS: SUPPORT DEVICES: Interval placement of gastric tube compared to the prior radiograph. Satisfactory ap pearance. HEART / MEDIASTINUM: Stable. LUNGS / PLEURA: Interval development of right lower lung opacity. Left lung is clear. No pneumothorax . ADDITIONAL FINDINGS: No significant additional findings. IMPRESSION: 1. Interval development of right lower lung airspace disease possibly representing pneumonia or aspir ation. Recommend clinical correlation and further follow-up until resolution. Signer Name: Krishan Cowan MD Signed: 08/06/2020 9:12 AM Workstation Name: [id number]
--- NOTE | 2020-08-06 10:10 | Event Note ---
Date: 08/06/20 Cardiology consulted for further eval of PFO in setting of CVA - ? ALISSA. Consultation deferred - can plan for further eval/management of PFO once me dically stabilized as OP. Recommend pt follow up in our office with Dr. St within 1-2 weeks of discharge ([phone]). D/w Dr. Redd. Kimberly BRADSHAW, [employer] / DR. ST
[2020-08-06] MEDS ORDERED: LACTATED RINGERS 1,000 ML ONE (10:30)
[2020-08-06] MEDS ORDERED: MIDAZOLAM 2 MG/2 ML INJ IV ONE ×2 (11:00→12:00)
[2020-08-06] MEDS ORDERED: ETOMIDATE 20 MG/10 ML INJ IV ONE (11:00)
[2020-08-06] MEDS ORDERED: fentaNYL 100 MCG/2 ML INJ IV ONE (11:00)
[2020-08-06] MEDS ORDERED: LIP THERAPY VASELINE TP PRN (11:26)
[2020-08-06] MEDS ORDERED: MINERAL OIL/PETROLATUM, WHITE OPHTH OINT 3.5 GM OU PRN (11:26)
--- NOTE | 2020-08-06 11:41 | Event Note ---
Date: 08/06/20 Evaluated patient at bedside. Unresponsive to sternal rub, breathing 50+ times per minute on bipap at 65%. Spoke with and I prefer to elective intubate this patient with worsening mental state and she agrees. Patient prepped and after 4 of versed 100 of fent and 15 of etomidate, patient was intubated with glade scope, grade 1 view with visualization of the ET tube going through the cords. patient likely aspirated as he had a lot of secretions. Sats in the upper 90's on 100%. Ordered Picc line and CXR. [place] requests patient be transferred when stable. If no vasopressor requirements later today patient would be stable. He ultimately will need trach and peg. Spoke with IMS and he will get a repeat head CT. No immediate complications post procedure. CCT 31 minutes.
--- NOTE | 2020-08-06 11:42 | Consultation ---
History of Present Illness Consult date: 08/06/20 Reason for consult: hypoxemia History of present illness: 59 y/o male with acute respiratory failure secondary to evolving stroke. Patient is unresponsive, breathing about 50+ times per minute and sat is in the mid 80's on 65% and bipap therapy. Past History Past Medical History: diabetes, hypertension, stroke Medications and Allergies Allergies Allergy/AdvReac Type Severity Reaction Status Date / Time No Known Allergies Allergy Verified 07/29/20 09:32 Home Medications Medication Instructions Recorded Confirmed Last Taken Type metFORMIN [Glucophage] 500 mg PO BID 07/30/20 07/30/20 Unknown History Active Meds: Active Medications Lipase/Protease/Amylase (Lipase 10,500/Protease 25,000/Amylase 43,750 (Units) Dr Garcia) 1 each FEEDTUBE PRN PRN PRN Reason: For Clogged Feeding Tube Aspirin (Aspirin Ec 81 Mg Tab) 81 mg PO QDAY [facility] Last Admin: 08/06/20 09:01 Dose: 81 mg Documented by: Atorvastatin Calcium (Atorvastatin 40 Mg Tab) 40 mg PO QHS [facility] Last Admin: 08/05/20 22:11 Dose: 40 mg Documented by: Clopidogrel Bisulfate (Clopidogrel 75 Mg Tab) 75 mg PO QDAY [facility] Last Admin: 08/06/20 09:01 Dose: 75 mg Documented by: Dextrose (Dextrose 50% In Water (25gm) 50 Ml Syringe) 0 ml IV Q30MIN PRN; Protocol PRN Reason: Hypoglycemia Heparin Sodium (Porcine) (Heparin 5,000 Unit/1 Ml Vial) 5,000 unit SUB-Q Q8HR [facility] Last Admin: 08/06/20 06:50 Dose: Not Given Documented by: Hydralazine HCl (Hydralazine 20 Mg/1 Ml Inj) 10 mg IV Q4H PRN PRN Reason: Blood Pressure Last Admin: 08/04/20 14:23 Dose: 10 mg Documented by: Hydrophilic Ointment (Lip Therapy Vaseline) 1 applic TP Q2HR PRN PRN Reason: Dry Lips Valproate Sodium 500 mg/ (Sodium Chloride) 105 mls @ 100 mls/hr IV Q12HR [facility] Last Admin: 08/06/20 01:18 Dose: 100 mls/hr Documented by: Cefepime HCl (Cefepime/Ns 1 Gm/100 Ml) 1 gm in 100 mls @ 200 mls/hr IV Q12H [facility]; Protocol Last Admin: 08/06/20 09:06 Dose: 200 mls/hr Documented by: Sodium Chloride (Nacl 0.45% 1000 Ml) 1,000 mls @ 75 mls/hr IV DIRECT SHILPA Propofol (Diprivan 10 Mg/Ml) 1,000 mg in 100 mls @ 2.175 mls/hr IV TITR SHILPA; Protocol Last Admin: 08/06/20 11:35 Dose: 5 mcg/kg/min, 2.175 mls/hr Documented by: Sodium Chloride (Nacl 0.9% 250ml) 250 mls @ 999 mls/hr IV ONCE ONE Stop: 08/06/20 12:00 Insulin Human Regular (Insulin Regular, Human 100 Units/1 Ml) 0 units SUB-Q ACHS [facility]; Protocol Last Admin: 08/06/20 09:02 Dose: 4 units Documented by: Labetalol HCl (Labetalol 20 Mg/4 Ml Inj) 10 mg IV Q5MIN PRN PRN Reason: to maintain SBP < 180 Metoprolol Tartrate (Metoprolol Tartrate 5 Mg/5 Ml Inj) 5 mg IV Q6HR PRN PRN Reason: Tachyarrhythmias Stop: 08/09/20 17:54 Last Admin: 08/06/20 04:44 Dose: 5 mg Documented by: Mirtazapine (Mirtazapine 15 Mg Tab) 7.5 mg PO QHS [facility] Last Admin: 08/05/20 22:10 Dose: 7.5 mg Documented by: Multi-Ingred Cream/Lotion/Oil/Oint (Mineral Oil/Petrolatum, White Ophth Oint 3.5 Gm) 1 applic OU Q4HR PRN PRN Reason: Dry Eye(s) Pantoprazole Sodium (Pantoprazole 40 Mg Tab) 40 mg PO QDAC [facility] Last Admin: 08/06/20 08:40 Dose: 40 mg Documented by: Simple Syrup (Simple Syrup 15 Ml) 15 ml FEEDTUBE PRN PRN PRN Reason: Hypoglycemia Simple Syrup (Simple Syrup 15 Ml) 30 ml FEEDTUBE PRN PRN PRN Reason: Hypoglycemia Sodium Bicarbonate (Sodium Bicarbonate 325 Mg Tab) 325 mg FEEDTUBE PRN PRN PRN Reason: For Clogged Feeding Tube Sodium Chloride (Sodium Chloride 0.9% 10 Ml Flush Syringe) 10 ml IV PRN PRN PRN Reason: LINE FLUSH Last Admin: 07/31/20 10:08 Dose: 10 ml Documented by: Review of Systems ROS unobtainable: due to mental status Physical Examination Vital signs: Vital Signs Pulse Resp 110 H 28 H 07/28/20 23:34 07/28/20 23:34 General appearance: comatose Results - Laboratory Findings CBC and BMP: 08/07/20 05:00 08/07/20 05:00 ABG ABG pH 7.516 (7.320-7.450) H 08/06/20 10:11 POC ABG pCO2 23.8 mmHg (32.0-48.0) L 08/06/20 10:11 POC ABG pO2 52.3 mmHg (83-108) L 08/06/20 10:11 POC ABG HCO3 18.8 08/06/20 10:11 ABG O2 Saturation 90.1 (0-100) 08/06/20 10:11 PT/INR, D-dimer D-Dimer 197.60 ng/mlDDU (0-234) 08/04/20 16:55 Abnormal lab findings: Abnormal Labs 07/28/20 07/28/20 07/28/20 23:59 23:59 23:59 WBC 13.2 H RBC 5.49 H Hgb 16.2 H Hct 50.3 H Mcdowell % (Auto) Mcdowell # (Auto) 0.9 H Seg Neutrophils % 72.4 H Seg Neuts % (Manual) Seg Neutrophils # 9.6 H Seg Neutrophils # Man ABG pH POC ABG pCO2 POC ABG pO2 ABG Hemoglobin ABG Oxyhemoglobin ABG Sodium ABG Chloride ABG Glucose Sodium Potassium Chloride Carbon Dioxide 18 L BUN 22 H Creatinine Glucose 151 H POC Glucose Hemoglobin A1c Lactic Acid Calcium Total Creatine Kinase HDL Cholesterol Arterial Blood Glucose Arterial Blood Ionized Calcium Urine Creatinine Urine Total Protein Salicylates < 0.3 L Acetaminophen 07/28/20 07/28/20 07/30/20 23:59 23:59 03:46 WBC RBC Hgb Hct Mcdowell % (Auto) Mcdowell # (Auto) Seg Neutrophils % Seg Neuts % (Manual) Seg Neutrophils # Seg Neutrophils # Man ABG pH POC ABG pCO2 POC ABG pO2 ABG Hemoglobin ABG Oxyhemoglobin ABG Sodium ABG Chloride ABG Glucose Sodium Potassium Chloride Carbon Dioxide BUN Creatinine Glucose POC Glucose Hemoglobin A1c Lactic Acid Calcium Total Creatine Kinase 276 H HDL Cholesterol 30 L Arterial Blood Glucose Arterial Blood Ionized Calcium Urine Creatinine Urine Total Protein Salicylates Acetaminophen 5.0 L 07/30/20 07/30/20 07/30/20 03:46 09:05 12:23 WBC RBC Hgb Hct Mcdowell % (Auto) Mcdowell # (Auto) Seg Neutrophils % Seg Neuts % (Manual) Seg Neutrophils # Seg Neutrophils # Man ABG pH POC ABG pCO2 POC ABG pO2 ABG Hemoglobin ABG Oxyhemoglobin ABG Sodium ABG Chloride ABG Glucose Sodium Potassium Chloride Carbon Dioxide BUN Creatinine Glucose POC Glucose 163 H 150 H Hemoglobin A1c 6.2 H Lactic Acid Calcium Total Creatine Kinase HDL Cholesterol Arterial Blood Glucose Arterial Blood Ionized Calcium Urine Creatinine Urine Total Protein Salicylates Acetaminophen 07/30/20 07/30/20 07/31/20 17:24 23:04 08:32 WBC 12.2 H RBC Hgb Hct Mcdowell % (Auto) 9.2 H Mcdowell # (Auto) 1.1 H Seg Neutrophils % Seg Neuts % (Manual) Seg Neutrophils # 8.5 H Seg Neutrophils # Man ABG pH POC ABG pCO2 POC ABG pO2 ABG Hemoglobin ABG Oxyhemoglobin ABG Sodium ABG Chloride ABG Glucose Sodium Potassium Chloride Carbon Dioxide BUN Creatinine Glucose POC Glucose 131 H 206 H Hemoglobin A1c Lactic Acid Calcium Total Creatine Kinase HDL Cholesterol Arterial Blood Glucose Arterial Blood Ionized Calcium Urine Creatinine Urine Total Protein Salicylates Acetaminophen 07/31/20 07/31/20 07/31/20 08:32 11:25 15:56 WBC RBC Hgb Hct Mcdowell % (Auto) Mcdowell # (Auto) Seg Neutrophils % Seg Neuts % (Manual) Seg Neutrophils # Seg Neutrophils # Man ABG pH POC ABG pCO2 POC ABG pO2 ABG Hemoglobin ABG Oxyhemoglobin ABG Sodium ABG Chloride ABG Glucose Sodium Potassium Chloride Carbon Dioxide BUN Creatinine 0.7 L Glucose 179 H POC Glucose 200 H 213 H Hemoglobin A1c Lactic Acid Calcium Total Creatine Kinase HDL Cholesterol Arterial Blood Glucose Arterial Blood Ionized Calcium Urine Creatinine Urine Total Protein Salicylates Acetaminophen 07/31/20 08/01/20 08/01/20 22:01 08:10 13:18 WBC RBC Hgb Hct Mcdowell % (Auto) Mcdowell # (Auto) Seg Neutrophils % Seg Neuts % (Manual) Seg Neutrophils # Seg Neutrophils # Man ABG pH POC ABG pCO2 POC ABG pO2 ABG Hemoglobin ABG Oxyhemoglobin ABG Sodium ABG Chloride ABG Glucose Sodium Potassium Chloride Carbon Dioxide BUN Creatinine Glucose POC Glucose 221 H 164 H 132 H Hemoglobin A1c Lactic Acid Calcium Total Creatine Kinase HDL Cholesterol Arterial Blood Glucose Arterial Blood Ionized Calcium Urine Creatinine Urine Total Protein Salicylates Acetaminophen 08/01/20 08/01/20 08/02/20 17:24 22:40 08:16 WBC RBC Hgb Hct Mcdowell % (Auto) Mcdowell # (Auto) Seg Neutrophils % Seg Neuts % (Manual) Seg Neutrophils # Seg Neutrophils # Man ABG pH POC ABG pCO2 POC ABG pO2 ABG Hemoglobin ABG Oxyhemoglobin ABG Sodium ABG Chloride ABG Glucose Sodium Potassium Chloride Carbon Dioxide BUN Creatinine Glucose POC Glucose 145 H 165 H 170 H Hemoglobin A1c Lactic Acid Calcium Total Creatine Kinase HDL Cholesterol Arterial Blood Glucose Arterial Blood Ionized Calcium Urine Creatinine Urine Total Protein Salicylates Acetaminophen 08/02/20 08/02/20 08/02/20 11:47 16:53 21:30 WBC RBC Hgb Hct Mcdowell % (Auto) Mcdowell # (Auto) Seg Neutrophils % Seg Neuts % (Manual) Seg Neutrophils # Seg Neutrophils # Man ABG pH POC ABG pCO2 POC ABG pO2 ABG Hemoglobin ABG Oxyhemoglobin ABG Sodium ABG Chloride ABG Glucose Sodium Potassium Chloride Carbon Dioxide BUN Creatinine Glucose POC Glucose 162 H 181 H 171 H Hemoglobin A1c Lactic Acid Calcium Total Creatine Kinase HDL Cholesterol Arterial Blood Glucose Arterial Blood Ionized Calcium Urine Creatinine Urine Total Protein Salicylates Acetaminophen 08/03/20 08/03/20 08/03/20 07:47 11:39 16:07 WBC RBC Hgb Hct Mcdowell % (Auto) Mcdowell # (Auto) Seg Neutrophils % Seg Neuts % (Manual) Seg Neutrophils # Seg Neutrophils # Man ABG pH POC ABG pCO2 POC ABG pO2 ABG Hemoglobin ABG Oxyhemoglobin ABG Sodium ABG Chloride ABG Glucose Sodium Potassium Chloride Carbon Dioxide BUN Creatinine Glucose POC Glucose 194 H 260 H 186 H Hemoglobin A1c Lactic Acid Calcium Total Creatine Kinase HDL Cholesterol Arterial Blood Glucose Arterial Blood Ionized Calcium Urine Creatinine Urine Total Protein Salicylates Acetaminophen 08/03/20 08/04/20 08/04/20 21:39 07:37 11:36 WBC RBC Hgb Hct Mcdowell % (Auto) Mcdowell # (Auto) Seg Neutrophils % Seg Neuts % (Manual) Seg Neutrophils # Seg Neutrophils # Man ABG pH POC ABG pCO2 POC ABG pO2 ABG Hemoglobin ABG Oxyhemoglobin ABG Sodium ABG Chloride ABG Glucose Sodium Potassium Chloride Carbon Dioxide BUN Creatinine Glucose POC Glucose 177 H 170 H 221 H Hemoglobin A1c Lactic Acid Calcium Total Creatine Kinase HDL Cholesterol Arterial Blood Glucose Arterial Blood Ionized Calcium Urine Creatinine Urine Total Protein Salicylates Acetaminophen 08/04/20 08/04/20 08/04/20 15:50 16:15 16:49 WBC RBC Hgb Hct Mcdowell % (Auto) Mcdowell # (Auto) Seg Neutrophils % Seg Neuts % (Manual) Seg Neutrophils # Seg Neutrophils # Man ABG pH POC ABG pCO2 29.2 L POC ABG pO2 68.4 L ABG Hemoglobin 17.9 H ABG Oxyhemoglobin 91.9 L ABG Sodium 149.1 H ABG Chloride 114.0 H ABG Glucose 270 H Sodium Potassium Chloride Carbon Dioxide BUN Creatinine Glucose POC Glucose 248 H 250 H Hemoglobin A1c Lactic Acid Calcium Total Creatine Kinase HDL Cholesterol Arterial Blood Glucose 270 H Arterial Blood Ionized Calcium 5.4 H Urine Creatinine Urine Total Protein Salicylates Acetaminophen 08/04/20 08/04/20 08/04/20 16:55 16:55 19:07 WBC 19.0 H RBC 5.78 H Hgb 17.1 H Hct 53.8 H Mcdowell % (Auto) Mcdowell # (Auto) 1.3 H Seg Neutrophils % 79.1 H Seg Neuts % (Manual) Seg Neutrophils # 15.0 H Seg Neutrophils # Man ABG pH POC ABG pCO2 POC ABG pO2 ABG Hemoglobin ABG Oxyhemoglobin ABG Sodium ABG Chloride ABG Glucose Sodium 147 H Potassium Chloride 109.7 H Carbon Dioxide 17 L BUN 56 H Creatinine 2.0 H D Glucose 271 H POC Glucose Hemoglobin A1c Lactic Acid 4.00 H* Calcium 10.7 H Total Creatine Kinase HDL Cholesterol Arterial Blood Glucose Arterial Blood Ionized Calcium Urine Creatinine Urine Total Protein Salicylates Acetaminophen 08/04/20 08/05/20 08/05/20 21:56 04:54 07:24 WBC RBC Hgb Hct Mcdowell % (Auto) Mcdowell # (Auto) Seg Neutrophils % Seg Neuts % (Manual) Seg Neutrophils # Seg Neutrophils # Man ABG pH POC ABG pCO2 POC ABG pO2 ABG Hemoglobin ABG Oxyhemoglobin ABG Sodium ABG Chloride ABG Glucose Sodium Potassium Chloride Carbon Dioxide BUN Creatinine Glucose POC Glucose 209 H Hemoglobin A1c Lactic Acid 2.10 H* 2.30 H* Calcium Total Creatine Kinase HDL Cholesterol Arterial Blood Glucose Arterial Blood Ionized Calcium Urine Creatinine Urine Total Protein Salicylates Acetaminophen 08/05/20 08/05/20 08/05/20 07:24 07:24 07:52 WBC 25.3 H RBC 5.80 H Hgb 17.3 H Hct 53.1 H Mcdowell % (Auto) Mcdowell # (Auto) Seg Neutrophils % Seg Neuts % (Manual) 81.0 H Seg Neutrophils # Seg Neutrophils # Man 20.5 H ABG pH POC ABG pCO2 POC ABG pO2 ABG Hemoglobin ABG Oxyhemoglobin ABG Sodium ABG Chloride ABG Glucose Sodium Potassium 5.7 H D Chloride 115.6 H Carbon Dioxide 10 L D BUN 66 H Creatinine 1.6 H Glucose 214 H POC Glucose 211 H Hemoglobin A1c Lactic Acid Calcium Total Creatine Kinase HDL Cholesterol Arterial Blood Glucose Arterial Blood Ionized Calcium Urine Creatinine Urine Total Protein Salicylates Acetaminophen 08/05/20 08/05/20 08/05/20 16:51 22:55 22:55 WBC RBC Hgb Hct Mcdowell % (Auto) Mcdowell # (Auto) Seg Neutrophils % Seg Neuts % (Manual) Seg Neutrophils # Seg Neutrophils # Man ABG pH POC ABG pCO2 POC ABG pO2 ABG Hemoglobin ABG Oxyhemoglobin ABG Sodium ABG Chloride ABG Glucose Sodium Potassium Chloride Carbon Dioxide BUN Creatinine Glucose POC Glucose 201 H Hemoglobin A1c Lactic Acid Calcium Total Creatine Kinase HDL Cholesterol Arterial Blood Glucose Arterial Blood Ionized Calcium Urine Creatinine 142.2 H Urine Total Protein 22 H Salicylates Acetaminophen 08/06/20 08/06/20 08/06/20 00:17 04:59 04:59 WBC 19.1 H RBC 5.19 H Hgb 15.4 H Hct 47.8 H Mcdowell % (Auto) Mcdowell # (Auto) Seg Neutrophils % Seg Neuts % (Manual) Seg Neutrophils # Seg Neutrophils # Man ABG pH POC ABG pCO2 POC ABG pO2 ABG Hemoglobin ABG Oxyhemoglobin ABG Sodium ABG Chloride ABG Glucose Sodium 153 H D Potassium Chloride 120.2 H Carbon Dioxide 21 L D BUN 51 H Creatinine 1.4 H Glucose 264 H POC Glucose 261 H Hemoglobin A1c Lactic Acid Calcium Total Creatine Kinase HDL Cholesterol Arterial Blood Glucose Arterial Blood Ionized Calcium Urine Creatinine Urine Total Protein Salicylates Acetaminophen 08/06/20 08/06/20 08/06/20 05:14 08:28 10:11 WBC RBC Hgb Hct Mcdowell % (Auto) Mcdowell # (Auto) Seg Neutrophils % Seg Neuts % (Manual) Seg Neutrophils # Seg Neutrophils # Man ABG pH 7.516 H POC ABG pCO2 23.8 L POC ABG pO2 52.3 L ABG Hemoglobin ABG Oxyhemoglobin 89.1 L ABG Sodium 152.4 H ABG Chloride 123.0 H ABG Glucose 340 H Sodium Potassium Chloride Carbon Dioxide BUN Creatinine Glucose POC Glucose 249 H 290 H Hemoglobin A1c Lactic Acid Calcium Total Creatine Kinase HDL Cholesterol Arterial Blood Glucose 340 H Arterial Blood Ionized Calcium 5.5 H Urine Creatinine Urine Total Protein Salicylates Acetaminophen - Diagnostic Findings Chest x-ray: image reviewed Assessment and Plan 59 y/o male with worsening stroke symptoms, now requiring intubation. Elective intubation now Will need trach and peg given current status from stroke. CCT 31 minutes.
[2020-08-06] MEDS ORDERED: SODIUM CHLORIDE 0.9% 250ML 250 ML IV ONE (11:45)
[2020-08-06] MEDS: SODIUM CHLORIDE 0.45% 1000 ML 1,000 ML IV SCH (11:49)
--- NOTE | 2020-08-06 12:21 | Progress Note ---
Subjective - Reason for Consult Consult date: 08/06/20 Reason for consult: AMS - Chief Complaint Chief complaint: Per Nursing staff: staff at patient's door. Patient being moved to ICU due to changes in his respiratory status. The patient was lying in bed with nonrebreather. He did not respond to verbal or tactile stimuli. MENTAL STATUS EXAMINATION sleeping today DX: ALTERED MENTAL STATUS Treatment Plan Valproic 500mg IV q12h Mirtazepine 7.5mg po qhs Risks, benefits and alternatives of medications discussed with the patient, questions answered and consent obtained from patient. PSYCHOTHERAPY: Supportive psychotherapy provided MEDICAL: Per primary team DELIRIUM PRECAUTIONS: Please re-orient patient frequently, keep lights on during the day, and minimize benzodiazepines and opiates as these medications could worsen patient's confusion. PRINTER ASSISTANT: Defer to primary DISPOSITION: Do Not Recommend acute inpatient psychiatric hospitalization at this time. FOLLOW-UP: Will follow Thank you for the consult. Please contact with any questions and/or concerns. Case discussed with Dr. Olivier who agrees with current disposition Mental Status Exam - Vital signs Last Vital Signs Temp 97.2 F L 08/06/20 03:55 Pulse 119 H 08/06/20 11:38 Resp 52 H 08/06/20 10:04 BP 113/62 08/06/20 10:04 Pulse Ox 100 08/06/20 11:38
--- NOTE | 2020-08-06 12:39 | XRay Report ---
CHEST 1 VIEW INDICATION: ETT placement COMPARISON: Earlier the same day FINDINGS: SUPPORT DEVICES: Endotracheal tubes in good position. Nasogastric tube has tip in stomach. HEART / MEDIASTINUM: No significant abnormality. LUNGS / PLEURA: Improved aeration is noted right lung base. Bronchovascular markings are prominent chen th lung bases ADDITIONAL FINDINGS: IMPRESSION: 1. Improved aeration right lower lobe as compared to previous exam disease Signer Name: Dario Butcher MD Signed: 08/06/2020 12:19 PM Workstation Name: [id number]
--- NOTE | 2020-08-06 14:25 | Progress Note ---
Assessment and Plan Cultures: Blood culture for 1121 no growth so far A/P: 59 yo M PMhx bipolar, HTN, Dm2 admitted with altered mentals status, subsequently found to have a stroke, now with leukocytosis #Leukocytosis: No obvious etiology at the present time. Blood cultures no growth so far, urine without bacteria. Covid negative. Possibly reactive to a cute stroke and hypoxic event. #Acute CVA: Management per neurology #Diabetes: tight glycemic control for best outcomes. Recs: -Continue empiric vancomycin and cefepime for now. -Follow-up blood cultures, if negative will stop vancomycin at that time. -Continue to trend white blood count for now. -Order procalcitonin for morning Thank you for the consult, we will continue to follow. Zay Meeks MD [facility] ([facility] O: [phone] F: [phone] Subjective Date of service: 08/06/20 Principal diagnosis: CVA Interval history: Febrile to 101.2 with a white count 19. Now on the vent. Imaging personally reviewed Chest x-ray: Improved aeration right lung Objective - Exam Narrative Exam: Physical Exam: Constitutional: intubated, sedated Head, Ears, Nose: Normocephalic, atraumatic. External ears, nose normal Eyes: Conjunctivae/corneas clear. No icterus. No ptosis. Neck: ETT Oral: ETT Cardiovascular: S1, S2 normal. Respiratory: Good air entry, clear to auscultation bilaterally GI: Soft, non-tender; bowel sounds normal. No peritoneal signs. Musculoskeletal: No pedal edema, no cyanosis. Skin: No rash or abscess Hem/Lymphatic: No palpable cervical or supraclavicular nodes. No lymphangitis Psych: Sedated Neurological: Sedated - Constitutional Vitals: Vital Signs Temp Pulse Resp BP Pulse Ox 98.8 F 120 H 34 H 97/67 91 08/06/20 12:41 08/06/20 14:00 08/06/20 14:00 08/06/20 14:00 08/06/20 14:00 Temperature -Last 24 Hours Temperature 98.8 F Temperature 101.2 F Temperature 97.2 F Temperature 97.3 F Temperature 97.2 F Temperature 97.9 F - Labs CBC & Chem 7: 08/06/20 04:59 08/06/20 04:59 Labs: Abnormal lab results 08/05/20 08/05/20 08/05/20 Range/Units 16:51 22:55 22:55 WBC (4.5-11.0) K/mm3 RBC (3.65-5.03) M/mm3 Hgb (11.8-15.2) gm/dl Hct (35.5-45.6) % ABG pH (7.320-7.450) POC ABG pCO2 (32.0-48.0) mmHg POC ABG pO2 (83-108) mmHg ABG Oxyhemoglobin (94-98) ABG Sodium (136.0-145.0) mmol/L ABG Chloride (98-107) mmol/L ABG Glucose (65-95) mg/dL Sodium (137-145) mmol/L Chloride (98-107) mmol/L Carbon Dioxide (22-30) mmol/L BUN (9-20) mg/dL Creatinine (0.8-1.3) mg/dL Glucose (75-100) mg/dL POC Glucose 201 H (70-105) mg/dL Arterial Blood Glucose (65-95) mg/dL Arterial Blood Ionized Calcium (4.6-5.3) mg/dL Urine Creatinine 142.2 H (0.1-20.0) mg/dL Urine Total Protein 22 H (5-11.8) mg/dL 08/06/20 08/06/20 08/06/20 Range/Units 00:17 04:59 04:59 WBC 19.1 H (4.5-11.0) K/mm3 RBC 5.19 H (3.65-5.03) M/mm3 Hgb 15.4 H (11.8-15.2) gm/dl Hct 47.8 H (35.5-45.6) % ABG pH (7.320-7.450) POC ABG pCO2 (32.0-48.0) mmHg POC ABG pO2 (83-108) mmHg ABG Oxyhemoglobin (94-98) ABG Sodium (136.0-145.0) mmol/L ABG Chloride (98-107) mmol/L ABG Glucose (65-95) mg/dL Sodium 153 H D (137-145) mmol/L Chloride 120.2 H (98-107) mmol/L Carbon Dioxide 21 L D (22-30) mmol/L BUN 51 H (9-20) mg/dL Creatinine 1.4 H (0.8-1.3) mg/dL Glucose 264 H (75-100) mg/dL POC Glucose 261 H (70-105) mg/dL Arterial Blood Glucose (65-95) mg/dL Arterial Blood Ionized Calcium (4.6-5.3) mg/dL Urine Creatinine (0.1-20.0) mg/dL Urine Total Protein (5-11.8) mg/dL 08/06/20 08/06/20 08/06/20 Range/Units 05:14 08:28 10:11 WBC (4.5-11.0) K/mm3 RBC (3.65-5.03) M/mm3 Hgb (11.8-15.2) gm/dl Hct (35.5-45.6) % ABG pH 7.516 H (7.320-7.450) POC ABG pCO2 23.8 L (32.0-48.0) mmHg POC ABG pO2 52.3 L (83-108) mmHg ABG Oxyhemoglobin 89.1 L (94-98) ABG Sodium 152.4 H (136.0-145.0) mmol/L ABG Chloride 123.0 H (98-107) mmol/L ABG Glucose 340 H (65-95) mg/dL Sodium (137-145) mmol/L Chloride (98-107) mmol/L Carbon Dioxide (22-30) mmol/L BUN (9-20) mg/dL Creatinine (0.8-1.3) mg/dL Glucose (75-100) mg/dL POC Glucose 249 H 290 H (70-105) mg/dL Arterial Blood Glucose 340 H (65-95) mg/dL Arterial Blood Ionized Calcium 5.5 H (4.6-5.3) mg/dL Urine Creatinine (0.1-20.0) mg/dL Urine Total Protein (5-11.8) mg/dL 08/06/20 08/06/20 Range/Units 12:24 12:32 WBC (4.5-11.0) K/mm3 RBC (3.65-5.03) M/mm3 Hgb (11.8-15.2) gm/dl Hct (35.5-45.6) % ABG pH (7.320-7.450) POC ABG pCO2 (32.0-48.0) mmHg POC ABG pO2 74.9 L (83-108) mmHg ABG Oxyhemoglobin 93.4 L (94-98) ABG Sodium 152.1 H (136.0-145.0) mmol/L ABG Chloride 121.0 H (98-107) mmol/L ABG Glucose 289 H (65-95) mg/dL Sodium (137-145) mmol/L Chloride (98-107) mmol/L Carbon Dioxide (22-30) mmol/L BUN (9-20) mg/dL Creatinine (0.8-1.3) mg/dL Glucose (75-100) mg/dL POC Glucose 268 H (70-105) mg/dL Arterial Blood Glucose 289 H (65-95) mg/dL Arterial Blood Ionized Calcium 5.6 H (4.6-5.3) mg/dL Urine Creatinine (0.1-20.0) mg/dL Urine Total Protein (5-11.8) mg/dL
--- NOTE | 2020-08-06 16:22 | Progress Note ---
Assessment and Plan - Patient Problems (1) Acute kidney injury Current Visit: Yes Status: Acute Plan to address problem: acute kidney injury most likely pre-renal azotemia in the setting of sepsis/hypotension, poor po intake, FeNA < 0.1%. IV NS bolus 250ml x 2 to maintain MAP > 65mmHg. renal function marginally better on IVF, however given worsening hypernatremia and hyperchloremic metabolic acidosis recommend to continue 1/2 NS at 75ml/hr. Avoid further nephrotoxins, NSAIDs, IV contrast. (2) Hypernatremia Current Visit: Yes Status: Acute Plan to address problem: cont IVF with 1/2 NS at 75ml/hr (3) Metabolic acidosis Current Visit: Yes Status: Acute Plan to address problem: hyperchloremic met acidosis (4) Acute CVA (cerebrovascular accident) Current Visit: Yes Status: Acute Plan to address problem: on ASA, statin, tight glucose control (5) Hypertension Current Visit: Yes Status: Acute Qualifiers: Hypertension type: essential hypertension Qualified Code(s): I10 - Essential (primary) hypertension Plan to address problem: off anti hypertensives d/t recent hypotension/possible sepsis Subjective Date of service: 08/06/20 Principal diagnosis: CVA Interval history: Pt seen and examined in the ICU, unresponsive to sternal rub, in acute respiratory failure with tachypnea with RR > 36, on bipap at 65%, discussed with ICU attending, plan for intubation. Pt was also hypotensive with BP as low as 80s/50s. Objective - Vital Signs Vital signs: Vital Signs - 12hr 08/06/20 08/06/20 08/06/20 04:44 08:00 08:06 Temperature 101.2 F H Pulse Rate 135 H 139 H 136 H Respiratory 24 Rate Blood Pressure 136/74 142/79 O2 Sat by Pulse 94 Oximetry 08/06/20 08/06/20 08/06/20 08:13 08:35 09:51 Temperature Pulse Rate 135 H 134 H Respiratory 14 Rate Blood Pressure 125/79 O2 Sat by Pulse 89 97 Oximetry 08/06/20 08/06/20 08/06/20 10:00 10:04 10:10 Temperature Pulse Rate 130 H 126 H 125 H Respiratory 48 H 52 H 51 H Rate Blood Pressure 113/62 113/62 113/62 O2 Sat by Pulse 65 L 94 93 Oximetry 08/06/20 08/06/20 08/06/20 10:20 10:30 10:40 Temperature Pulse Rate 122 H 121 H 121 H Respiratory 48 H 51 H 53 H Rate Blood Pressure 87/55 83/58 83/58 O2 Sat by Pulse 93 93 93 Oximetry 08/06/20 08/06/20 08/06/20 10:51 11:00 11:10 Temperature Pulse Rate 119 H 117 H 111 H Respiratory 53 H 22 Rate Blood Pressure 91/59 127/80 O2 Sat by Pulse 95 96 100 Oximetry 08/06/20 08/06/20 08/06/20 11:20 11:30 11:38 Temperature Pulse Rate 120 H 124 H 119 H Respiratory 13 25 H Rate Blood Pressure 125/76 110/62 O2 Sat by Pulse 93 91 100 Oximetry 08/06/20 08/06/20 08/06/20 11:40 11:50 12:00 Temperature Pulse Rate 117 H 113 H 111 H Respiratory 27 H 23 26 H Rate Blood Pressure 86/58 96/58 103/52 O2 Sat by Pulse 100 100 100 Oximetry 08/06/20 08/06/20 08/06/20 12:10 12:20 12:30 Temperature Pulse Rate 109 H 108 H 113 H Respiratory 27 H 27 H 29 H Rate Blood Pressure 103/52 107/76 107/76 O2 Sat by Pulse 100 100 100 Oximetry 08/06/20 08/06/20 08/06/20 12:40 12:41 12:50 Temperature 98.8 F Pulse Rate 112 H 113 H Respiratory 28 H 29 H Rate Blood Pressure 95/42 116/96 O2 Sat by Pulse 100 100 Oximetry 08/06/20 08/06/20 08/06/20 13:00 13:10 13:20 Temperature Pulse Rate 110 H 110 H 116 H Respiratory 24 29 H 22 Rate Blood Pressure 123/74 123/74 104/76 O2 Sat by Pulse 100 100 100 Oximetry 08/06/20 08/06/20 08/06/20 13:30 13:40 13:50 Temperature Pulse Rate 117 H 120 H 119 H Respiratory 36 H 31 H 34 H Rate Blood Pressure 101/77 101/77 100/74 O2 Sat by Pulse 89 100 88 Oximetry 08/06/20 08/06/20 08/06/20 14:00 14:10 14:20 Temperature Pulse Rate 120 H 122 H 120 H Respiratory 34 H 34 H 25 H Rate Blood Pressure 97/67 97/67 97/67 O2 Sat by Pulse 91 97 98 Oximetry 08/06/20 08/06/20 08/06/20 14:30 14:40 14:50 Temperature Pulse Rate 122 H 120 H 121 H Respiratory 20 29 H 29 H Rate Blood Pressure 108/72 108/72 108/72 O2 Sat by Pulse 100 100 100 Oximetry 08/06/20 15:00 Temperature Pulse Rate 123 H Respiratory 29 H Rate Blood Pressure 109/79 O2 Sat by Pulse 100 Oximetry - General Appearance General appearance: well-developed, chronically ill EENT: ATNC, mucous membranes moist Neck: no JVD Respiratory: Present: Decreased Breath Sounds Cardiology: regular, S1S2 Gastrointestinal: normoactive bowel sounds Integumentary: no rash Neurologic: confused, disoriented - Lab 08/06/20 04:59 08/06/20 04:59 Most recent lab results ABG pH 7.345 (7.320-7.450) 08/06/20 12:24 ABG O2 Saturation 94.2 (0-100) 08/06/20 12:24 Calcium 9.6 mg/dL (8.4-10.2) 08/06/20 04:59 Urine Creatinine 142.2 mg/dL (0.1-20.0) H 08/05/20 22:55 Urine Sodium 21 mmol/L 08/05/20 22:55 Urine Total Protein 22 mg/dL (5-11.8) H 08/05/20 22:55 Medications & Allergies - Medications Allergies/Adverse Reactions: Allergies No Known Allergies Allergy (Verified 07/29/20 09:32) Home Medications: Home Medications Medication Instructions Recorded Confirmed Last Taken Type metFORMIN [Glucophage] 500 mg PO BID 07/30/20 07/30/20 Unknown History Active Medications: Generic Name Dose Route Start Last Admin Trade Name Freq PRN Reason Stop Dose Admin Lipase/Protease/Amylase 1 each 08/05/20 12:01 Lipase 10,500/Protease 25,000/Amylase 43,750 (Units) Dr Garcia FEEDTUBE PRN PRN For Clogged Feeding Tube Aspirin 81 mg 08/01/20 10:00 08/06/20 09:01 Aspirin Ec 81 Mg Tab PO 81 mg QDAY SHILPA Administration Atorvastatin Calcium 40 mg 07/30/20 22:00 08/05/20 22:11 Atorvastatin 40 Mg Tab PO 40 mg QHS SHILPA Administration Clopidogrel Bisulfate 75 mg 07/31/20 18:00 08/06/20 09:01 Clopidogrel 75 Mg Tab PO 75 mg QDAY SHILPA Administration Dextrose 0 ml 07/29/20 23:41 Dextrose 50% In Water (25gm) 50 Ml Syringe IV Q30MIN PRN Hypoglycemia Protocol Heparin Sodium (Porcine) 5,000 unit 07/30/20 06:00 08/06/20 06:50 Heparin 5,000 Unit/1 Ml Vial SUB-Q Not Given Q8HR SHILPA Hydralazine HCl 10 mg 07/30/20 02:00 08/04/20 14:23 Hydralazine 20 Mg/1 Ml Inj IV 10 mg Q4H PRN Administration Blood Pressure Hydrophilic Ointment 1 applic 08/06/20 11:26 Lip Therapy Vaseline TP Q2HR PRN Dry Lips Valproate Sodium 500 mg/ 105 mls @ 100 mls/hr 08/04/20 22:00 08/06/20 01:18 Sodium Chloride IV 100 mls/hr Q12HR SHILPA Administration Cefepime HCl 1 gm in 100 mls @ 200 mls/hr 08/04/20 19:00 08/06/20 09:06 Cefepime/Ns 1 Gm/100 Ml IV 200 mls/hr Q12H SHILPA Administration Protocol Sodium Chloride 1,000 mls @ 75 mls/hr 08/06/20 11:00 08/06/20 11:49 Nacl 0.45% 1000 Ml IV 75 mls/hr DIRECT SHILPA Administration Propofol 1,000 mg in 100 mls @ 2.175 mls/hr 08/06/20 12:00 08/06/20 11:35 Diprivan 10 Mg/Ml IV 5 mcg/kg/min TITR SHILPA 2.175 mls/hr Administration Protocol 5 MCG/KG/MIN Vancomycin HCl 1 gm in 250 mls @ 166.667 mls/hr 08/06/20 15:00 Vancomycin/Ns 1 Gm/250 Ml IV Q24H SHILPA Insulin Human Regular 0 units 07/31/20 22:04 08/06/20 09:02 Insulin Regular, Human 100 Units/1 Ml SUB-Q 4 units ACHS SHILPA Administration Protocol Labetalol HCl 10 mg 07/29/20 23:30 Labetalol 20 Mg/4 Ml Inj IV Q5MIN PRN to maintain SBP < 180 Metoprolol Tartrate 5 mg 08/04/20 17:55 08/06/20 04:44 Metoprolol Tartrate 5 Mg/5 Ml Inj IV 08/09/20 17:54 5 mg Q6HR PRN Administration Tachyarrhythmias Mirtazapine 7.5 mg 08/04/20 22:00 08/05/20 22:10 Mirtazapine 15 Mg Tab PO 7.5 mg QHS SHILPA Administration Pantoprazole Sodium 40 mg 07/30/20 07:30 08/06/20 08:40 Pantoprazole 40 Mg Tab PO 40 mg QDAC SHILPA Administration Simple Syrup 15 ml 08/05/20 12:01 Simple Syrup 15 Ml FEEDTUBE PRN PRN Hypoglycemia Simple Syrup 30 ml 08/05/20 12:01 Simple Syrup 15 Ml FEEDTUBE PRN PRN Hypoglycemia Sodium Bicarbonate 325 mg 08/05/20 12:01 Sodium Bicarbonate 325 Mg Tab FEEDTUBE PRN PRN For Clogged Feeding Tube Sodium Chloride 10 ml 07/29/20 23:30 07/31/20 10:08 Sodium Chloride 0.9% 10 Ml Flush Syringe IV 10 ml PRN PRN Administration LINE FLUSH
[2020-08-06] MEDS: VANCOMYCIN/NS 1 GM/250 ML 1 GM/250 ML BAG IV SCH (18:05)
[2020-08-06] MEDS: MIRTAZAPINE 15 MG TAB PO SCH (22:50)
--- NOTE | 2020-08-07 02:52 | XRay Report ---
CHEST 1 VIEW INDICATION: follow up respiratory failure. COMPARISON: One day prior. FINDINGS: Support devices: Tubes unchanged. There is a new right PICC which projects over the SVC in expected p osition. Heart: Stable. Lungs/Pleura: Bibasilar opacities have improved. IMPRESSION: 1. New right PICC in expected position. No new pulmonary or pleural findings. Signer Name: Benjamin Cuevas MD Signed: 08/07/2020 2:48 AM Workstation Name: [id number]
[2020-08-07] MEDS: SODIUM CHLORIDE 0.45% 1000 ML 1,000 ML IV SCH (03:14)
[2020-08-07] MEDS: HEPARIN 5,000 UNIT/1 ML VIAL SUB-Q SCH (04:59)
[2020-08-07 06:55] LABS: Hematocrit 43.7 % (35.5-45.6); Hemoglobin 14.3 gm/dl (11.8-15.2); Mean Corpuscular HGB Conc 33 % (32-34); Mean Corpuscular Volume 92 fl (84-94); Platelet Count 104 K/mm3 (140-440); Red Blood Count 4.75 M/mm3 (3.65-5.03); Red Cell Distribution Width 15.4 % (13.2-15.2)
[2020-08-07 07:03] LABS: Calcium 9.8 mg/dL (8.4-10.2)
[2020-08-07] MEDS: INSULIN REGULAR, HUMAN 100 UNITS/1 ML SUB-Q SCH (07:36)
[2020-08-07] MEDS: CEFEPIME/NS 1 GM/100 ML 1 GM/100 ML BAG IV SCH ×2 (07:37→19:43)
[2020-08-07] MEDS: PANTOPRAZOLE 40 MG TAB PO SCH (07:40)
[2020-08-07] MEDS: VALPROATE SODIUM 500 MG in SODIUM CHLORIDE 0.9% 100 ML IV SCH (09:11)
[2020-08-07] MEDS: CLOPIDOGREL 75 MG TAB PO SCH (09:12)
[2020-08-07] MEDS ORDERED: ASPIRIN 81 MG TAB CHEW PO SCH (10:00)
[2020-08-07] MEDS ORDERED: LANSOPRAZOLE 30 MG SOLUTAB FEEDTUBE SCH (10:00)
[2020-08-07] MEDS ORDERED: SENNOSIDES 8.6 MG TAB PO PRN (11:06)
[2020-08-07] MEDS ORDERED: LACTATED RINGERS 1,000 ML IV ONE (11:15)
[2020-08-07] MEDS ORDERED: DOCUSATE SODIUM 100 MG/10 ML ORAL LIQD PO SCH (11:30)
[2020-08-07] MEDS ORDERED: INSULIN REGULAR, HUMAN 100 UNITS/1 ML SUB-Q SCH (12:00)
--- NOTE | 2020-08-07 13:44 | Progress Note ---
Assessment and Plan 59 y/o male with worsening stroke symptoms, now requiring intubation. 08/07/20: Follow up [facility], they requested patient to be transferred when stable and he is. Follow up repeat Head CT and neuro recs. Prognosis appears to be very guarded to poor. Elective intubation now Will need trach and peg given current status from stroke. CCT 31 minutes. Subjective Date of service: 08/07/20 Principal diagnosis: CVA Interval history: No acute events. Hemodynamically stable. Not on sedation and remains unresponsive. DId not have head CT on yesterday. Objective Vital Signs - 12hr 08/07/20 08/07/20 08/07/20 01:45 02:00 02:15 Temperature Pulse Rate 117 H 116 H 116 H Respiratory 30 H 31 H 31 H Rate Blood Pressure 134/67 100/73 123/61 O2 Sat by Pulse 100 100 99 Oximetry 08/07/20 08/07/20 08/07/20 02:30 02:45 03:00 Temperature Pulse Rate 117 H 118 H 117 H Respiratory 34 H 31 H 32 H Rate Blood Pressure 127/77 123/82 121/82 O2 Sat by Pulse 99 100 98 Oximetry 08/07/20 08/07/20 08/07/20 03:15 03:25 03:30 Temperature 98.9 F Pulse Rate 116 H 115 H Respiratory 30 H 28 H Rate Blood Pressure 111/77 112/72 O2 Sat by Pulse 98 100 Oximetry 08/07/20 08/07/20 08/07/20 03:40 03:45 04:00 Temperature Pulse Rate 116 H 115 H 116 H Respiratory 12 31 H 29 H Rate Blood Pressure 112/72 104/81 125/80 O2 Sat by Pulse 97 100 100 Oximetry 08/07/20 08/07/20 08/07/20 04:15 04:30 04:46 Temperature Pulse Rate 115 H 112 H 114 H Respiratory 28 H 29 H Rate Blood Pressure 111/75 132/83 136/87 O2 Sat by Pulse 100 100 99 Oximetry 08/07/20 08/07/20 08/07/20 05:00 05:15 05:30 Temperature Pulse Rate 121 H 123 H 117 H Respiratory 29 H Rate Blood Pressure 136/87 108/79 92/69 O2 Sat by Pulse 100 100 100 Oximetry 08/07/20 08/07/20 08/07/20 05:45 06:00 06:15 Temperature Pulse Rate 113 H 114 H 114 H Respiratory 28 H 28 H 27 H Rate Blood Pressure 88/65 96/72 100/79 O2 Sat by Pulse 100 100 100 Oximetry 08/07/20 08/07/20 08/07/20 06:30 06:45 07:00 Temperature Pulse Rate 114 H 115 H 115 H Respiratory 29 H 29 H 29 H Rate Blood Pressure 105/73 97/72 97/72 O2 Sat by Pulse 100 100 100 Oximetry 08/07/20 08/07/20 08/07/20 07:15 07:30 07:45 Temperature Pulse Rate 116 H 115 H 115 H Respiratory 30 H 29 H 30 H Rate Blood Pressure 104/74 96/73 98/70 O2 Sat by Pulse 100 100 100 Oximetry 08/07/20 08/07/20 08/07/20 08:00 08:05 08:15 Temperature 97.8 F Pulse Rate 116 H 114 H 115 H Respiratory 29 H 28 H Rate Blood Pressure 104/71 104/71 101/73 O2 Sat by Pulse 100 100 100 Oximetry 08/07/20 08/07/20 08/07/20 08:30 08:45 09:00 Temperature Pulse Rate 116 H 116 H 114 H Respiratory 31 H 31 H 32 H Rate Blood Pressure 103/76 110/84 110/84 O2 Sat by Pulse 100 100 100 Oximetry 08/07/20 08/07/20 08/07/20 09:15 09:30 09:45 Temperature Pulse Rate 117 H 118 H 115 H Respiratory 33 H 33 H 30 H Rate Blood Pressure 127/88 122/80 120/79 O2 Sat by Pulse 100 100 100 Oximetry 08/07/20 08/07/20 08/07/20 10:00 10:15 10:30 Temperature Pulse Rate 115 H 115 H 114 H Respiratory 26 H 38 H 31 H Rate Blood Pressure 118/80 117/87 113/80 O2 Sat by Pulse 100 100 100 Oximetry 08/07/20 08/07/20 08/07/20 10:45 11:00 11:15 Temperature Pulse Rate 114 H 115 H 115 H Respiratory 30 H 34 H 31 H Rate Blood Pressure 113/84 103/80 113/85 O2 Sat by Pulse 100 100 100 Oximetry 08/07/20 08/07/20 08/07/20 11:30 11:45 12:00 Temperature 98.2 F Pulse Rate 109 H 110 H 109 H Respiratory 30 H 30 H 28 H Rate Blood Pressure 129/80 109/83 106/82 O2 Sat by Pulse 100 100 100 Oximetry 08/07/20 08/07/20 08/07/20 12:15 12:30 12:45 Temperature Pulse Rate 86 85 92 H Respiratory 26 H 25 H 25 H Rate Blood Pressure 119/75 113/72 109/71 O2 Sat by Pulse 100 100 100 Oximetry 08/07/20 08/07/20 08/07/20 13:01 13:15 13:30 Temperature Pulse Rate 90 89 93 H Respiratory 27 H 26 H 25 H Rate Blood Pressure 103/76 109/75 111/75 O2 Sat by Pulse 100 100 100 Oximetry Constitutional: comatose CBC and BMP: 08/07/20 05:00 08/07/20 05:00 ABG, PT/INR, D-dimer: ABG ABG pH 7.439 (7.320-7.450) 08/07/20 04:07 POC ABG pCO2 30.5 mmHg (32.0-48.0) L 08/07/20 04:07 POC ABG pO2 62.5 mmHg (83-108) L 08/07/20 04:07 POC ABG HCO3 20.2 08/07/20 04:07 ABG O2 Saturation 92.2 (0-100) 08/07/20 04:07 PT/INR, D-dimer D-Dimer 197.60 ng/mlDDU (0-234) 08/04/20 16:55 Abnormal lab findings: Abnormal Labs 07/28/20 07/28/20 07/28/20 23:59 23:59 23:59 WBC 13.2 H RBC 5.49 H Hgb 16.2 H Hct 50.3 H RDW Plt Count [place] % (Auto) [place] # (Auto) 0.9 H Seg Neutrophils % 72.4 H Seg Neuts % (Manual) Seg Neutrophils # 9.6 H Seg Neutrophils # Man ABG pH POC ABG pCO2 POC ABG pO2 ABG Hemoglobin ABG Oxyhemoglobin ABG Sodium ABG Chloride ABG Glucose Sodium Potassium Chloride Carbon Dioxide 18 L BUN 22 H Creatinine Glucose 151 H POC Glucose Hemoglobin A1c Lactic Acid Calcium Total Creatine Kinase HDL Cholesterol Arterial Blood Glucose Arterial Blood Ionized Calcium Urine Creatinine Urine Total Protein Salicylates < 0.3 L Acetaminophen 07/28/20 07/28/20 07/30/20 23:59 23:59 03:46 WBC RBC Hgb Hct RDW Plt Count [place] % (Auto) [place] # (Auto) Seg Neutrophils % Seg Neuts % (Manual) Seg Neutrophils # Seg Neutrophils # Man ABG pH POC ABG pCO2 POC ABG pO2 ABG Hemoglobin ABG Oxyhemoglobin ABG Sodium ABG Chloride ABG Glucose Sodium Potassium Chloride Carbon Dioxide BUN Creatinine Glucose POC Glucose Hemoglobin A1c Lactic Acid Calcium Total Creatine Kinase 276 H HDL Cholesterol 30 L Arterial Blood Glucose Arterial Blood Ionized Calcium Urine Creatinine Urine Total Protein Salicylates Acetaminophen 5.0 L 07/30/20 07/30/20 07/30/20 03:46 09:05 12:23 WBC RBC Hgb Hct RDW Plt Count [place] % (Auto) [place] # (Auto) Seg Neutrophils % Seg Neuts % (Manual) Seg Neutrophils # Seg Neutrophils # Man ABG pH POC ABG pCO2 POC ABG pO2 ABG Hemoglobin ABG Oxyhemoglobin ABG Sodium ABG Chloride ABG Glucose Sodium Potassium Chloride Carbon Dioxide BUN Creatinine Glucose POC Glucose 163 H 150 H Hemoglobin A1c 6.2 H Lactic Acid Calcium Total Creatine Kinase HDL Cholesterol Arterial Blood Glucose Arterial Blood Ionized Calcium Urine Creatinine Urine Total Protein Salicylates Acetaminophen 07/30/20 07/30/20 07/31/20 17:24 23:04 08:32 WBC 12.2 H RBC Hgb Hct RDW Plt Count [place] % (Auto) 9.2 H [place] # (Auto) 1.1 H Seg Neutrophils % Seg Neuts % (Manual) Seg Neutrophils # 8.5 H Seg Neutrophils # Man ABG pH POC ABG pCO2 POC ABG pO2 ABG Hemoglobin ABG Oxyhemoglobin ABG Sodium ABG Chloride ABG Glucose Sodium Potassium Chloride Carbon Dioxide BUN Creatinine Glucose POC Glucose 131 H 206 H Hemoglobin A1c Lactic Acid Calcium Total Creatine Kinase HDL Cholesterol Arterial Blood Glucose Arterial Blood Ionized Calcium Urine Creatinine Urine Total Protein Salicylates Acetaminophen 07/31/20 07/31/20 07/31/20 08:32 11:25 15:56 WBC RBC Hgb Hct RDW Plt Count [place] % (Auto) [place] # (Auto) Seg Neutrophils % Seg Neuts % (Manual) Seg Neutrophils # Seg Neutrophils # Man ABG pH POC ABG pCO2 POC ABG pO2 ABG Hemoglobin ABG Oxyhemoglobin ABG Sodium ABG Chloride ABG Glucose Sodium Potassium Chloride Carbon Dioxide BUN Creatinine 0.7 L Glucose 179 H POC Glucose 200 H 213 H Hemoglobin A1c Lactic Acid Calcium Total Creatine Kinase HDL Cholesterol Arterial Blood Glucose Arterial Blood Ionized Calcium Urine Creatinine Urine Total Protein Salicylates Acetaminophen 07/31/20 08/01/20 08/01/20 22:01 08:10 13:18 WBC RBC Hgb Hct RDW Plt Count [place] % (Auto) [place] # (Auto) Seg Neutrophils % Seg Neuts % (Manual) Seg Neutrophils # Seg Neutrophils # Man ABG pH POC ABG pCO2 POC ABG pO2 ABG Hemoglobin ABG Oxyhemoglobin ABG Sodium ABG Chloride ABG Glucose Sodium Potassium Chloride Carbon Dioxide BUN Creatinine Glucose POC Glucose 221 H 164 H 132 H Hemoglobin A1c Lactic Acid Calcium Total Creatine Kinase HDL Cholesterol Arterial Blood Glucose Arterial Blood Ionized Calcium Urine Creatinine Urine Total Protein Salicylates Acetaminophen 08/01/20 08/01/20 08/02/20 17:24 22:40 08:16 WBC RBC Hgb Hct RDW Plt Count [place] % (Auto) [place] # (Auto) Seg Neutrophils % Seg Neuts % (Manual) Seg Neutrophils # Seg Neutrophils # Man ABG pH POC ABG pCO2 POC ABG pO2 ABG Hemoglobin ABG Oxyhemoglobin ABG Sodium ABG Chloride ABG Glucose Sodium Potassium Chloride Carbon Dioxide BUN Creatinine Glucose POC Glucose 145 H 165 H 170 H Hemoglobin A1c Lactic Acid Calcium Total Creatine Kinase HDL Cholesterol Arterial Blood Glucose Arterial Blood Ionized Calcium Urine Creatinine Urine Total Protein Salicylates Acetaminophen 08/02/20 08/02/20 08/02/20 11:47 16:53 21:30 WBC RBC Hgb Hct RDW Plt Count [place] % (Auto) [place] # (Auto) Seg Neutrophils % Seg Neuts % (Manual) Seg Neutrophils # Seg Neutrophils # Man ABG pH POC ABG pCO2 POC ABG pO2 ABG Hemoglobin ABG Oxyhemoglobin ABG Sodium ABG Chloride ABG Glucose Sodium Potassium Chloride Carbon Dioxide BUN Creatinine Glucose POC Glucose 162 H 181 H 171 H Hemoglobin A1c Lactic Acid Calcium Total Creatine Kinase HDL Cholesterol Arterial Blood Glucose Arterial Blood Ionized Calcium Urine Creatinine Urine Total Protein Salicylates Acetaminophen 08/03/20 08/03/20 08/03/20 07:47 11:39 16:07 WBC RBC Hgb Hct RDW Plt Count [place] % (Auto) [place] # (Auto) Seg Neutrophils % Seg Neuts % (Manual) Seg Neutrophils # Seg Neutrophils # Man ABG pH POC ABG pCO2 POC ABG pO2 ABG Hemoglobin ABG Oxyhemoglobin ABG Sodium ABG Chloride ABG Glucose Sodium Potassium Chloride Carbon Dioxide BUN Creatinine Glucose POC Glucose 194 H 260 H 186 H Hemoglobin A1c Lactic Acid Calcium Total Creatine Kinase HDL Cholesterol Arterial Blood Glucose Arterial Blood Ionized Calcium Urine Creatinine Urine Total Protein Salicylates Acetaminophen 08/03/20 08/04/20 08/04/20 21:39 07:37 11:36 WBC RBC Hgb Hct RDW Plt Count [place] % (Auto) [place] # (Auto) Seg Neutrophils % Seg Neuts % (Manual) Seg Neutrophils # Seg Neutrophils # Man ABG pH POC ABG pCO2 POC ABG pO2 ABG Hemoglobin ABG Oxyhemoglobin ABG Sodium ABG Chloride ABG Glucose Sodium Potassium Chloride Carbon Dioxide BUN Creatinine Glucose POC Glucose 177 H 170 H 221 H Hemoglobin A1c Lactic Acid Calcium Total Creatine Kinase HDL Cholesterol Arterial Blood Glucose Arterial Blood Ionized Calcium Urine Creatinine Urine Total Protein Salicylates Acetaminophen 08/04/20 08/04/20 08/04/20 15:50 16:15 16:49 WBC RBC Hgb Hct RDW Plt Count [place] % (Auto) [place] # (Auto) Seg Neutrophils % Seg Neuts % (Manual) Seg Neutrophils # Seg Neutrophils # Man ABG pH POC ABG pCO2 29.2 L POC ABG pO2 68.4 L ABG Hemoglobin 17.9 H ABG Oxyhemoglobin 91.9 L ABG Sodium 149.1 H ABG Chloride 114.0 H ABG Glucose 270 H Sodium Potassium Chloride Carbon Dioxide BUN Creatinine Glucose POC Glucose 248 H 250 H Hemoglobin A1c Lactic Acid Calcium Total Creatine Kinase HDL Cholesterol Arterial Blood Glucose 270 H Arterial Blood Ionized Calcium 5.4 H Urine Creatinine Urine Total Protein Salicylates Acetaminophen 08/04/20 08/04/20 08/04/20 16:55 16:55 19:07 WBC 19.0 H RBC 5.78 H Hgb 17.1 H Hct 53.8 H RDW Plt Count [place] % (Auto) [place] # (Auto) 1.3 H Seg Neutrophils % 79.1 H Seg Neuts % (Manual) Seg Neutrophils # 15.0 H Seg Neutrophils # Man ABG pH POC ABG pCO2 POC ABG pO2 ABG Hemoglobin ABG Oxyhemoglobin ABG Sodium ABG Chloride ABG Glucose Sodium 147 H Potassium Chloride 109.7 H Carbon Dioxide 17 L BUN 56 H Creatinine 2.0 H D Glucose 271 H POC Glucose Hemoglobin A1c Lactic Acid 4.00 H* Calcium 10.7 H Total Creatine Kinase HDL Cholesterol Arterial Blood Glucose Arterial Blood Ionized Calcium Urine Creatinine Urine Total Protein Salicylates Acetaminophen 08/04/20 08/05/20 08/05/20 21:56 04:54 07:24 WBC RBC Hgb Hct RDW Plt Count [place] % (Auto) [place] # (Auto) Seg Neutrophils % Seg Neuts % (Manual) Seg Neutrophils # Seg Neutrophils # Man ABG pH POC ABG pCO2 POC ABG pO2 ABG Hemoglobin ABG Oxyhemoglobin ABG Sodium ABG Chloride ABG Glucose Sodium Potassium Chloride Carbon Dioxide BUN Creatinine Glucose POC Glucose 209 H Hemoglobin A1c Lactic Acid 2.10 H* 2.30 H* Calcium Total Creatine Kinase HDL Cholesterol Arterial Blood Glucose Arterial Blood Ionized Calcium Urine Creatinine Urine Total Protein Salicylates Acetaminophen 08/05/20 08/05/20 08/05/20 07:24 07:24 07:52 WBC 25.3 H RBC 5.80 H Hgb 17.3 H Hct 53.1 H RDW Plt Count [place] % (Auto) [place] # (Auto) Seg Neutrophils % Seg Neuts % (Manual) 81.0 H Seg Neutrophils # Seg Neutrophils # Man 20.5 H ABG pH POC ABG pCO2 POC ABG pO2 ABG Hemoglobin ABG Oxyhemoglobin ABG Sodium ABG Chloride ABG Glucose Sodium Potassium 5.7 H D Chloride 115.6 H Carbon Dioxide 10 L D BUN 66 H Creatinine 1.6 H Glucose 214 H POC Glucose 211 H Hemoglobin A1c Lactic Acid Calcium Total Creatine Kinase HDL Cholesterol Arterial Blood Glucose Arterial Blood Ionized Calcium Urine Creatinine Urine Total Protein Salicylates Acetaminophen 08/05/20 08/05/20 08/05/20 16:51 22:55 22:55 WBC RBC Hgb Hct RDW Plt Count [place] % (Auto) [place] # (Auto) Seg Neutrophils % Seg Neuts % (Manual) Seg Neutrophils # Seg Neutrophils # Man ABG pH POC ABG pCO2 POC ABG pO2 ABG Hemoglobin ABG Oxyhemoglobin ABG Sodium ABG Chloride ABG Glucose Sodium Potassium Chloride Carbon Dioxide BUN Creatinine Glucose POC Glucose 201 H Hemoglobin A1c Lactic Acid Calcium Total Creatine Kinase HDL Cholesterol Arterial Blood Glucose Arterial Blood Ionized Calcium Urine Creatinine 142.2 H Urine Total Protein 22 H Salicylates Acetaminophen 08/06/20 08/06/20 08/06/20 00:17 04:59 04:59 WBC 19.1 H RBC 5.19 H Hgb 15.4 H Hct 47.8 H RDW Plt Count [place] % (Auto) [place] # (Auto) Seg Neutrophils % Seg Neuts % (Manual) Seg Neutrophils # Seg Neutrophils # Man ABG pH POC ABG pCO2 POC ABG pO2 ABG Hemoglobin ABG Oxyhemoglobin ABG Sodium ABG Chloride ABG Glucose Sodium 153 H D Potassium Chloride 120.2 H Carbon Dioxide 21 L D BUN 51 H Creatinine 1.4 H Glucose 264 H POC Glucose 261 H Hemoglobin A1c Lactic Acid Calcium Total Creatine Kinase HDL Cholesterol Arterial Blood Glucose Arterial Blood Ionized Calcium Urine Creatinine Urine Total Protein Salicylates Acetaminophen 08/06/20 08/06/20 08/06/20 05:14 08:28 10:11 WBC RBC Hgb Hct RDW Plt Count [place] % (Auto) [place] # (Auto) Seg Neutrophils % Seg Neuts % (Manual) Seg Neutrophils # Seg Neutrophils # Man ABG pH 7.516 H POC ABG pCO2 23.8 L POC ABG pO2 52.3 L ABG Hemoglobin ABG Oxyhemoglobin 89.1 L ABG Sodium 152.4 H ABG Chloride 123.0 H ABG Glucose 340 H Sodium Potassium Chloride Carbon Dioxide BUN Creatinine Glucose POC Glucose 249 H 290 H Hemoglobin A1c Lactic Acid Calcium Total Creatine Kinase HDL Cholesterol Arterial Blood Glucose 340 H Arterial Blood Ionized Calcium 5.5 H Urine Creatinine Urine Total Protein Salicylates Acetaminophen 08/06/20 08/06/20 08/06/20 12:24 12:32 18:08 WBC RBC Hgb Hct RDW Plt Count [place] % (Auto) [place] # (Auto) Seg Neutrophils % Seg Neuts % (Manual) Seg Neutrophils # Seg Neutrophils # Man ABG pH POC ABG pCO2 POC ABG pO2 74.9 L ABG Hemoglobin ABG Oxyhemoglobin 93.4 L ABG Sodium 152.1 H ABG Chloride 121.0 H ABG Glucose 289 H Sodium Potassium Chloride Carbon Dioxide BUN Creatinine Glucose POC Glucose 268 H 199 H Hemoglobin A1c Lactic Acid Calcium Total Creatine Kinase HDL Cholesterol Arterial Blood Glucose 289 H Arterial Blood Ionized Calcium 5.6 H Urine Creatinine Urine Total Protein Salicylates Acetaminophen 08/06/20 08/07/20 08/07/20 22:59 04:07 05:00 WBC 19.8 H RBC Hgb Hct RDW 15.4 H Plt Count 104 L [place] % (Auto) [place] # (Auto) Seg Neutrophils % Seg Neuts % (Manual) Seg Neutrophils # Seg Neutrophils # Man ABG pH POC ABG pCO2 30.5 L POC ABG pO2 62.5 L ABG Hemoglobin ABG Oxyhemoglobin ABG Sodium 152.3 H ABG Chloride 124.0 H ABG Glucose 216 H Sodium Potassium Chloride Carbon Dioxide BUN Creatinine Glucose POC Glucose 191 H Hemoglobin A1c Lactic Acid Calcium Total Creatine Kinase HDL Cholesterol Arterial Blood Glucose 216 H Arterial Blood Ionized Calcium 5.5 H Urine Creatinine Urine Total Protein Salicylates Acetaminophen 08/07/20 08/07/20 05:00 11:21 WBC RBC Hgb Hct RDW Plt Count [place] % (Auto) [place] # (Auto) Seg Neutrophils % Seg Neuts % (Manual) Seg Neutrophils # Seg Neutrophils # Man ABG pH POC ABG pCO2 POC ABG pO2 ABG Hemoglobin ABG Oxyhemoglobin ABG Sodium ABG Chloride ABG Glucose Sodium 154 H Potassium Chloride 120.6 H Carbon Dioxide BUN 54 H Creatinine 1.5 H Glucose 197 H POC Glucose 197 H Hemoglobin A1c Lactic Acid Calcium Total Creatine Kinase HDL Cholesterol Arterial Blood Glucose Arterial Blood Ionized Calcium Urine Creatinine Urine Total Protein Salicylates Acetaminophen
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
--- NOTE | 2020-08-07 15:31 | Progress Note ---
Assessment and Plan Cultures: Blood culture no growth so far A/P: 59 yo M PMhx bipolar, HTN, Dm2 admitted with altered mentals status, subsequently found to have a stroke, now with leukocytosis #Leukocytosis: No obvious etiology at the present time. Blood cultures no growth so far, urine without bacteria. Covid negative. Possibly reactive to acute stroke and hypoxic event. #Acute CVA: Management per neurology #Diabetes: tight glycemic control for best outcomes. Recs: -Continue empiric cefepime -Stopped vancomycin as blood cultures no growth so far -Follow-up sputum cultures -Continue to trend white blood count for now. Thank you for the consult, we will continue to follow. Zay Meeks MD [facility] ([facility]) O: [phone] F: [phone] Subjective Date of service: 08/07/20 Principal diagnosis: CVA Interval history: Afebrile with a white count of 19.8 Imaging personally reviewed: Chest x-ray: Improving bibasilar opacities Objective - Exam Narrative Exam: Physical Exam: Constitutional: intubated, sedated Head, Ears, Nose: Normocephalic, atraumatic. External ears, nose normal Eyes: Conjunctivae/corneas clear. No icterus. No ptosis. Neck: ETT Oral: ETT Cardiovascular: S1, S2 normal. Respiratory: Good air entry, clear to auscultation bilaterally GI: Soft, non-tender; bowel sounds normal. No peritoneal signs. Musculoskeletal: No pedal edema, no cyanosis. Skin: No rash or abscess Hem/Lymphatic: No palpable cervical or supraclavicular nodes. No lymphangitis Psych: Sedated Neurological: Sedated - Constitutional Vitals: Vital Signs Temp Pulse Resp BP Pulse Ox 98.2 F 85 26 H 108/75 100 08/07/20 12:00 08/07/20 13:45 08/07/20 13:45 08/07/20 13:45 08/07/20 13:45 Temperature -Last 24 Hours Temperature 98.2 F Temperature 97.8 F Temperature 98.9 F Temperature 99.3 F Temperature 98.3 F - Labs CBC & Chem 7: 08/07/20 05:00 08/07/20 05:00 Labs: Abnormal lab results 08/06/20 08/06/20 08/07/20 Range/Units 18:08 22:59 04:07 WBC (4.5-11.0) K/mm3 RDW (13.2-15.2) % Plt Count (140-440) K/mm3 POC ABG pCO2 30.5 L (32.0-48.0) mmHg POC ABG pO2 62.5 L (83-108) mmHg ABG Sodium 152.3 H (136.0-145.0) mmol/L ABG Chloride 124.0 H (98-107) mmol/L ABG Glucose 216 H (65-95) mg/dL Sodium (137-145) mmol/L Chloride (98-107) mmol/L BUN (9-20) mg/dL Creatinine (0.8-1.3) mg/dL Glucose (75-100) mg/dL POC Glucose 199 H 191 H (70-105) mg/dL Arterial Blood Glucose 216 H (65-95) mg/dL Arterial Blood Ionized Calcium 5.5 H (4.6-5.3) mg/dL 08/07/20 08/07/20 08/07/20 Range/Units 05:00 05:00 11:21 WBC 19.8 H (4.5-11.0) K/mm3 RDW 15.4 H (13.2-15.2) % Plt Count 104 L (140-440) K/mm3 POC ABG pCO2 (32.0-48.0) mmHg POC ABG pO2 (83-108) mmHg ABG Sodium (136.0-145.0) mmol/L ABG Chloride (98-107) mmol/L ABG Glucose (65-95) mg/dL Sodium 154 H (137-145) mmol/L Chloride 120.6 H (98-107) mmol/L BUN 54 H (9-20) mg/dL Creatinine 1.5 H (0.8-1.3) mg/dL Glucose 197 H (75-100) mg/dL POC Glucose 197 H (70-105) mg/dL Arterial Blood Glucose (65-95) mg/dL Arterial Blood Ionized Calcium (4.6-5.3) mg/dL
--- NOTE | 2020-08-07 15:32 | Event Note ---
I spoke to Dr. Blanton at the [place] transfer hub at [phone] and updated her on the clinical status of Mr. Dunn. She informed me that due to unavailability of ICU beds that the patient cannot transfer at this time but they will reassess tomorrow.
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
[2020-08-07] MEDS: VANCOMYCIN/NS 1 GM/250 ML 1 GM/250 ML BAG IV SCH (15:50)
--- NOTE | 2020-08-07 15:51 | Cat Scan Report ---
CT HEAD WITHOUT CONTRAST INDICATION : Altered mental status. TECHNIQUE: Axial imaging performed from the skull apex through the skull base without the use of con trast. Sagittal and coronal reformatted images. All CT scans at this location are performed using C T dose reduction for ALARA by means of automated exposure control. COMPARISON: 08/04/2020 FINDINGS: Parenchyma: Large areas of diminished attenuation have developed throughout the left cerebral hemisp here primarily in the left MCA and left GORDO distributions. This area of abnormal density has signific antly increased in size measuring up to 13 x 5.5 cm in axial plane. Smaller areas of diminished atten uation have developed in the medial right frontal lobe which are new measuring up to 3.6 x 2.1 cm. Th ere is moderate to severe mass effect with effacement of the suprasellar cistern. Right to left midli ne shift measures 1.1 cm at the level of the frontal horns. Subfalcine herniation could be present. T here is no evidence for hemorrhage. Ventricles: Mild dilatation of the right lateral ventricle and right temporal horn has developed sin ce the previous exam. The left ventricle is moderately compressed by edema. Bones: No acute osseous abnormality. Sinuses: Sinuses and mastoid air cells are clear. Soft tissues: Soft tissues including the orbits appear normal. IMPRESSION: Evolving subacute ischemic infarct throughout the left MCA distribution is considerably l arger in size since 08/04/2020 exam. There is moderate to severe mass effect and midline shift measuri ng up to 1.1 cm. Subfalcine herniation is likely present. No evidence for hemorrhage. There are new a reas of evolving ischemia in the right medial frontal lobe as well. Please see above. Signer Name: Shaji Cornell Jr, MD Signed: 08/07/2020 3:34 PM Workstation Name: [id number]
[2020-08-07] MEDS ORDERED: MORPHINE 4 MG/1 ML INJ IV PRN (18:18)
[2020-08-07] MEDS ORDERED: LORazepam 2 MG/ML VIAL IV PRN (18:18)
[2020-08-07] MEDS ORDERED: GLYCOPYRROLATE 0.4 MG/2 ML INJ IV PRN (18:19)
[2020-08-07] MEDS ORDERED: MORPHINE 2 MG/1 ML INJ IV PRN ×2 (18:19)
--- NOTE | 2020-08-07 18:19 | Event Note ---
Date: 08/07/20 Patient seen and evaluated by me and was found to have evidence of anoxic brain injury suspected secondary to brain herniation. Patient findings discussed with patient's , Luciana Dunn [phone]. Patient CT scan findings consistent with nonsurvivable brain injury. Patient informed of findings. Patient reports that she elects to make patient DNR and initiate comfort measures only as well as withdrawal of life support. Patient acknowledges understanding prognosis as well as understanding and agreement with care plan. +60 minutes dedicated to patient bedside care, as well as initiation of comfort measures only. Advanced care planning conducted, +30 minutes.
[2020-08-07] MEDS ORDERED: MORPHINE 4 MG/1 ML INJ IV ONE (19:18)
[2020-08-07] MEDS ORDERED: LORazepam 2 MG/ML VIAL IV ONE (19:18)
[2020-08-07 22:11] VITALS: BP 115/70
--- NOTE | 2020-08-08 05:17 | Event Note ---
Date: 08/07/20 59-year-old -[place] male who has been on admission in the intensive care unit after having a CVA. He was subsequently found to have anoxic brain injury and has been made a DNR. I was called to pronounce as patient had no pulse Upon exam patient is on responsive to verbal commands and deep sternal rub. Pupils fixed and dilated. Chest: No breath sounds Cardiovascular exam: No heart sounds and no peripheral pulses Abdomen: Soft,no masses, no bowel sounds Extremities: Cold and clammy Central nervous system: No response, no reflexes. Patient pronounced on August 07, 2020 at 21:44 PM Family to be informed.
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
--- NOTE | 2020-08-08 11:32 | Electrocardiograph Report ---
[facility] Test Date: 2020-08-04 Test Time: 17:05:34 Pat Name: KARIS REYES Department: Room: A258 Gender: M Band Leader: ALIE : 1960 Requested By: MP SANTOS Order Number: [id number] Reading MD: Kumar St Measurements Intervals [place]ina Rate: 99 P: 69 RI: 114 QRS: 44 QRSD: 112 T: -82 QT: 357 QTc: 458 Interpretive Statements Sinus rhythm Right atrial enlargement Repol abnrm suggests ischemia, diffuse leads Compared to ECG 07/28/2020 23:51:37 Early repolarization now present Possible ischemia now present Left ventricular hypertrophy no longer present Q waves no longer present ST (T wave) deviation no longer present Electronically Signed On 08-08-2020 11:32:[address]
--- NOTE | 2020-08-08 11:43 | Electrocardiograph Report ---
[facility] Test Date: 2020-08-07 Test Time: 15:06:18 Pat Name: KARIS REYES Department: Room: A258 1 Gender: M Turkey Picker: JOLEEN : 1960 Requested By: SILVIA RIOS Order Number: [id number] Reading MD: Gretchne Jamil Measurements Intervals [place] Rate: 111 P: 63 [place]: 102 QRS: 77 QRSD: 82 T: -84 QT: 314 QTc: 427 Interpretive Statements Sinus tachycardia Ventricular premature complex Nonspecific repol abnormality, diffuse leads Compared to ECG 08/04/2020 17:05:34 Electronically Signed On 08-08-2020 11:43:30 EDT by Gretchen Jamil
== END 2020-08-07 21:44 | DRG 64 ==
LOC: ED 23:28 → 3A 07-29 22:08 → OBSVTOIN 07-31 10:45 → 4A 07-31 21:37 → CC1 08-04 16:33 → 4A 08-05 12:08 → IMCU 08-06 09:51 → CC1 08-06 10:57
PROVIDERS: ADMIT Hospitalist; ATTEND Internal Medicine
PROC: 4A033R1 Measurement of Arterial Saturation, Peripheral, Percutaneous Approach (ICD-10-PCS; 2020-08-04)
PROC: 0BH17EZ Insertion of Endotracheal Airway into Trachea, Via Natural or Artificial Opening (ICD-10-PCS; principal; 2020-08-06)
PROC: 5A1945Z Respiratory Ventilation, 24-96 Consecutive Hours (ICD-10-PCS; 2020-08-06)
PROC: 5A09357 Assistance with Respiratory Ventilation, Less than 24 Consecutive Hours, Continuous Positive Airway Pressure (ICD-10-PCS; 2020-08-06)
DX: I63.9 Cerebral infarction, unspecified (principal); G93.41 Metabolic encephalopathy; J96.01 Acute respiratory failure with hypoxia; N17.0 Acute kidney failure with tubular necrosis; E87.0 Hyperosmolality and hypernatremia; G93.1 Anoxic brain damage, not elsewhere classified; Q21.1 Atrial septal defect; E87.2 Acidosis; G81.91 Hemiplegia, unspecified affecting right dominant side; Z66 Do not resuscitate; I10 Essential (primary) hypertension; Z20.822 Contact with and (suspected) exposure to COVID-19; F31.9 Bipolar disorder, unspecified; R29.708 NIHSS score 8; E87.8 Other disorders of electrolyte and fluid balance, not elsewhere classified; D72.829 Elevated white blood cell count, unspecified; D75.1 Secondary polycythemia; I65.22 Occlusion and stenosis of left carotid artery; I95.9 Hypotension, unspecified; F19.10 Other psychoactive substance abuse, uncomplicated; E11.9 Type 2 diabetes mellitus without complications; Z86.59 Personal history of other mental and behavioral disorders; Z79.899 Other long term (current) drug therapy; Z79.891 Long term (current) use of opiate analgesic; Z79.01 Long term (current) use of anticoagulants; Z79.84 Long term (current) use of oral hypoglycemic drugs
CPT/HCPCS: 36415; 36600; 70450; 70496; 70498; 71045; 74018; 78580; 80048; 80053; 80061; 80076; 80202; 80307; 80320; 81001; 82140; 82550; 82570; 82805; 82962; 83036; 84145; 84156; 84300; 84443; 84484; 85007; 85025; 85027; 85379; 85652; 87040; 87070; 87086; 87205; 93005; 93306; 93880; 94002; 94003; 94660; 96365; 96375; G0378; A9270-GY; A9540; G0480; J0360; J0692; J1644; J1815; J2060; J2250; J2270; J2704; J3010; J3370; J7030; J7050; J7120; Q9967; U0003